=== PATIENT | male | born 1945 | race Caucasian/White ===

== ENCOUNTER 2020-12-18 14:31 | Inpatient (IN) ==
[2020-12-18] MEDS ORDERED: methylPREDNISolone 125 MG/2 ML VIAL IVP ONE (15:26)
[2020-12-18] MEDS ORDERED: Ipratropium/Albuterol Neb 3 ML IH PRN (15:26)
[2020-12-18] MEDS ORDERED: cefTRIAXone 1,000 MG in Water for inj. (sterile) 10 ML IVP ONE (15:27)
[2020-12-18] MEDS ORDERED: Azithromycin 500 MG in 0.9 % Sodium Chloride 250 ML IVPB ONE (15:27)
[2020-12-18] MEDS ORDERED: Furosemide 40 MG/4 ML VIAL IVP ONE (17:25)
[2020-12-18] MEDS ORDERED: Acetaminophen 325 MG TABLET PO PRN (17:32)
[2020-12-18] MEDS ORDERED: Melatonin 3 MG TABLET PO PRN (17:32)
[2020-12-18] MEDS ORDERED: Ondansetron 4 MG/2 ML VIAL IVP PRN (17:32)
[2020-12-18 17:51] LABS: Adenovirus Not Detected (Not Detect); Bordetella Pertussis Not Detected (Not Detect); Chlamydophila pneumoniae Not Detected (Not Detect); Coronavirus 229E Not Detected (Not Detect); Coronavirus HKU1 Not Detected (Not Detect); Coronavirus NL63 Not Detected (Not Detect); Coronavirus OC43 Not Detected (Not Detect); Human Metapneumovirus Not Detected (Not Detect); Human Rhinovirus/Enterovirus Not Detected (Not Detect); Influenza A Subtype 2009 H1 Not Detected (Not Detect); Influenza B Not Detected (Not Detect); Mycoplasma pneumoniae Not Detected (Not Detect); Parainfluenza Virus 1 Not Detected (Not Detect); Parainfluenza Virus 2 Not Detected (Not Detect); Parainfluenza Virus 3 Not Detected (Not Detect); Parainfluenza Virus 4 Not Detected (Not Detect); Respiratory Syncytial Virus Not Detected (Not Detect); SARS-CoV-2 Not Detected (Not Detect)
[2020-12-18] MEDS: Ipratropium/Albuterol Neb 3 ML IH SCH ×2 (20:04→23:45)
[2020-12-18] MEDS: Budesonide/Formoterol 160/4.5 1 PUFF INH IH SCH (20:04)
[2020-12-18] MEDS: *HR* Dabigatran 150 MG CAPSULE PO SCH (20:31)
[2020-12-18] MEDS: MethylPREDNISolone 40 MG/ML VIAL IVP SCH (23:10)
[2020-12-19 03:43] LABS: Hematocrit 42.6 % (37.5-50.1); Hemoglobin 14.5 g/dL (12.9-16.9); Mean Corpuscular Hemoglobin 32.2 pg (28.0-33.3); Mean Corpuscular Volume 94.7 fL (83.0-100.0); Mean Platelet Volume 8.8 fL (9.4-12.4); Platelet Count 213 K/mcL (140-400); Red Cell Distribution Width 14.2 % (11.5-14.5); White Blood Count 5.3 K/mcL (4.3-11.1)
[2020-12-19 03:53] LABS: INR 1.2; Prothrombin Time 14.3 Seconds (9.4-12.1)
[2020-12-19 04:03] LABS: BUN/Creatinine Ratio 26 (6-26); Blood Urea Nitrogen 23 mg/dL (8-23); Calcium 9.6 mg/dL (8.6-10.3); Carbon Dioxide 26 mEq/L (23-29); Chloride 96 mEq/L (98-107); Glucose 201 mg/dL (70-105); Magnesium 1.8 mg/dL (1.6-2.6); Osmolality,Calculated 281 (280-300); Phosphorous 3.2 mg/dL (2.7-4.5); Potassium 4.9 mEq/L (3.5-5.1); Sodium 131 mEq/L (136-145); eGFR For African Americans > 60 (> 60); eGFR For Non-African Americans > 60 (> 60)
[2020-12-19] MEDS: Ipratropium/Albuterol Neb 3 ML IH SCH ×6 (04:10→23:03)
[2020-12-19] MEDS: Budesonide/Formoterol 160/4.5 1 PUFF INH IH SCH ×2 (07:18→19:52)
[2020-12-19] MEDS: DilTIAZem CD (24hr) 240 MG CAP.ER.24H PO SCH (08:42)
[2020-12-19] MEDS: Metoprolol XL (24 HR) Succ 50 MG TAB.ER.24H PO SCH (08:42)
[2020-12-19] MEDS: cefTRIAXone 1,000 MG in Water for inj. (sterile) 10 ML IVP SCH (08:42)
[2020-12-19] MEDS: *HR* Dabigatran 150 MG CAPSULE PO SCH ×2 (08:42→20:03)
[2020-12-19] MEDS: MethylPREDNISolone 40 MG/ML VIAL IVP SCH ×2 (08:42→17:03)
[2020-12-19] MEDS ORDERED: Furosemide 40 MG/4 ML VIAL IVP SCH (09:00)
[2020-12-19] MEDS: Azithromycin 250 MG TABLET PO SCH (17:03)
[2020-12-20] MEDS: MethylPREDNISolone 40 MG/ML VIAL IVP SCH (00:09)
[2020-12-20] MEDS: Ipratropium/Albuterol Neb 3 ML IH SCH ×6 (04:09→22:43)
[2020-12-20] MEDS: Budesonide/Formoterol 160/4.5 1 PUFF INH IH SCH ×2 (07:22→20:05)
[2020-12-20] MEDS: DilTIAZem CD (24hr) 240 MG CAP.ER.24H PO SCH (08:52)
[2020-12-20] MEDS: Metoprolol XL (24 HR) Succ 50 MG TAB.ER.24H PO SCH (08:53)
[2020-12-20] MEDS: Furosemide 40 MG TABLET PO SCH (08:53)
[2020-12-20] MEDS: predniSONE 20 MG TABLET PO SCH (08:53)
[2020-12-20] MEDS: *HR* Dabigatran 150 MG CAPSULE PO SCH ×2 (08:53→20:12)
[2020-12-20] MEDS: cefTRIAXone 1,000 MG in Water for inj. (sterile) 10 ML IVP SCH (08:54)
[2020-12-20] MEDS ORDERED: Fluticasone Propionate Nasal 50 MCG/SPRAY BOTTLE NS PRN (10:36)
[2020-12-20] MEDS: Azithromycin 250 MG TABLET PO SCH (16:26)
[2020-12-21 01:55] LABS: Hematocrit 37.5 % (37.5-50.1); Mean Corpuscular HGB Conc 34.7 g/dL (31.6-35.5); Mean Corpuscular Hemoglobin 33.2 pg (28.0-33.3); Mean Corpuscular Volume 95.9 fL (83.0-100.0); Mean Platelet Volume 9.1 fL (9.4-12.4); Platelet Count 224 K/mcL (140-400); Red Blood Count 3.91 M/mcL (4.19-5.50); Red Cell Distribution Width 14.2 % (11.5-14.5)
[2020-12-21 02:01] LABS: White Blood Count 12.9 K/mcL (4.3-11.1)
[2020-12-21 02:17] LABS: BUN/Creatinine Ratio 40 (6-26); Blood Urea Nitrogen 32 mg/dL (8-23); Calcium 9.1 mg/dL (8.6-10.3); Carbon Dioxide 25 mEq/L (23-29); Chloride 98 mEq/L (98-107); Glucose 252 mg/dL (70-105); Osmolality,Calculated 287 (280-300); Potassium 3.9 mEq/L (3.5-5.1); Sodium 131 mEq/L (136-145); eGFR For African Americans > 60 (> 60); eGFR For Non-African Americans > 60 (> 60)
[2020-12-21] MEDS: Ipratropium/Albuterol Neb 3 ML IH SCH ×6 (03:42→23:21)
[2020-12-21] MEDS: Budesonide/Formoterol 160/4.5 1 PUFF INH IH SCH ×2 (07:40→19:56)
[2020-12-21] MEDS: cefTRIAXone 1,000 MG in Water for inj. (sterile) 10 ML IVP SCH (07:46)
[2020-12-21] MEDS: *HR* Dabigatran 150 MG CAPSULE PO SCH ×2 (07:46→20:24)
[2020-12-21] MEDS: DilTIAZem CD (24hr) 240 MG CAP.ER.24H PO SCH (07:47)
[2020-12-21] MEDS: Furosemide 40 MG TABLET PO SCH (07:47)
[2020-12-21] MEDS: predniSONE 20 MG TABLET PO SCH (07:47)
[2020-12-21] MEDS: Metoprolol XL (24 HR) Succ 50 MG TAB.ER.24H PO SCH (07:48)
[2020-12-21] MEDS: MethylPREDNISolone 40 MG/ML VIAL IVP SCH (16:59)
[2020-12-21] MEDS: Azithromycin 250 MG TABLET PO SCH (16:59)
[2020-12-22 02:03] LABS: Basophils % 0.3 %; Hematocrit 37.3 % (37.5-50.1); Hemoglobin 12.8 g/dL (12.9-16.9); Immature Granulocytes % 1.6 % (0-4); Lymphocytes # 1.5 K/mcL (0.6-4.6); Lymphocytes % 14.7 %; Mean Corpuscular HGB Conc 34.3 g/dL (31.6-35.5); Mean Corpuscular Hemoglobin 32.7 pg (28.0-33.3); Mean Corpuscular Volume 95.2 fL (83.0-100.0); Mean Platelet Volume 8.8 fL (9.4-12.4); Monocytes # 0.4 K/mcL (0.0-1.3); Monocytes % 3.7 %; Neutrophils # 7.9 K/mcL (1.6-8.9); Platelet Count 230 K/mcL (140-400); Red Blood Count 3.92 M/mcL (4.19-5.50); Red Cell Distribution Width 14.1 % (11.5-14.5); Segmented Neutrophils % 79.7 %; White Blood Count 9.9 K/mcL (4.3-11.1)
[2020-12-22] MEDS: Ipratropium/Albuterol Neb 3 ML IH SCH ×6 (04:12→22:09)
[2020-12-22] MEDS: MethylPREDNISolone 40 MG/ML VIAL IVP SCH ×3 (06:23→15:19)
[2020-12-22] MEDS: Budesonide/Formoterol 160/4.5 1 PUFF INH IH SCH ×2 (07:23→22:10)
[2020-12-22] MEDS: *HR* Dabigatran 150 MG CAPSULE PO SCH ×2 (10:06→20:24)
[2020-12-22] MEDS: Metoprolol XL (24 HR) Succ 50 MG TAB.ER.24H PO SCH (10:06)
[2020-12-22] MEDS: Furosemide 40 MG TABLET PO SCH (10:07)
[2020-12-22] MEDS: DilTIAZem CD (24hr) 240 MG CAP.ER.24H PO SCH (10:07)
[2020-12-22] MEDS: cefTRIAXone 1,000 MG in Water for inj. (sterile) 10 ML IVP SCH (10:07)
[2020-12-22] MEDS: Acetylcysteine 10% 2 ML INHSOL IH SCH ×3 (11:16→22:09)
[2020-12-22] MEDS: Azithromycin 250 MG TABLET PO SCH (15:19)
[2020-12-23] MEDS: MethylPREDNISolone 40 MG/ML VIAL IVP SCH ×3 (00:17→18:10)
[2020-12-23] MEDS: Ipratropium/Albuterol Neb 3 ML IH SCH ×4 (03:54→22:27)
[2020-12-23] MEDS: Acetylcysteine 10% 2 ML INHSOL IH SCH ×4 (03:54→22:27)
[2020-12-23] MEDS: *HR* Dabigatran 150 MG CAPSULE PO SCH ×2 (07:58→21:00)
[2020-12-23] MEDS: DilTIAZem CD (24hr) 240 MG CAP.ER.24H PO SCH (07:58)
[2020-12-23] MEDS: Metoprolol XL (24 HR) Succ 50 MG TAB.ER.24H PO SCH (07:58)
[2020-12-23] MEDS: Furosemide 40 MG TABLET PO SCH (07:59)
[2020-12-23] MEDS: Budesonide/Formoterol 160/4.5 1 PUFF INH IH SCH ×2 (09:48→22:26)
[2020-12-24] MEDS: MethylPREDNISolone 40 MG/ML VIAL IVP SCH ×2 (00:50→08:01)
[2020-12-24] MEDS: Acetylcysteine 10% 2 ML INHSOL IH SCH (03:30)
[2020-12-24] MEDS: Ipratropium/Albuterol Neb 3 ML IH SCH (03:30)
[2020-12-24 07:14] LABS: Basophils # 0.1 K/mcL (0.0-0.2); Basophils % 0.8 %; Eosinophils # 0.1 K/mcL (0.0-0.6); Eosinophils % 0.4 %; Hematocrit 40.5 % (37.5-50.1); Hemoglobin 14.1 g/dL (12.9-16.9); Immature Granulocytes % 2.9 % (0-4); Lymphocytes # 1.5 K/mcL (0.6-4.6); Lymphocytes % 13.2 %; Mean Corpuscular HGB Conc 34.8 g/dL (31.6-35.5); Mean Corpuscular Hemoglobin 32.3 pg (28.0-33.3); Mean Corpuscular Volume 92.7 fL (83.0-100.0); Mean Platelet Volume 8.6 fL (9.4-12.4); Monocytes # 0.5 K/mcL (0.0-1.3); Monocytes % 4.9 %; Neutrophils # 8.7 K/mcL (1.6-8.9); Platelet Count 305 K/mcL (140-400); Red Blood Count 4.37 M/mcL (4.19-5.50); Red Cell Distribution Width 13.8 % (11.5-14.5); Segmented Neutrophils % 77.8 %; White Blood Count 11.1 K/mcL (4.3-11.1)
[2020-12-24 07:34] LABS: BUN/Creatinine Ratio 43 (6-26); Blood Urea Nitrogen 35 mg/dL (8-23); Calcium 9.6 mg/dL (8.6-10.3); Carbon Dioxide 31 mEq/L (23-29); Chloride 94 mEq/L (98-107); Glucose 332 mg/dL (70-105); Osmolality,Calculated 299 (280-300); Potassium 4.4 mEq/L (3.5-5.1); Sodium 134 mEq/L (136-145); eGFR For African Americans > 60 (> 60); eGFR For Non-African Americans > 60 (> 60)
[2020-12-24] MEDS: Metoprolol XL (24 HR) Succ 50 MG TAB.ER.24H PO SCH (08:02)
[2020-12-24] MEDS: Furosemide 40 MG TABLET PO SCH (08:02)
[2020-12-24] MEDS: *HR* Dabigatran 150 MG CAPSULE PO SCH (08:02)
[2020-12-24] MEDS: DilTIAZem CD (24hr) 240 MG CAP.ER.24H PO SCH (08:02)
[2020-12-25 06:51] VITALS: BP 133/76
== END 2020-12-24 09:25 | disposition home or self-care (01) | DRG 190 ==
LOC: EMEROOARM 14:31 → 3ANU 14:31 → SUATTDRO 17:34 → 3ANU 18:37
PROVIDERS: ADMIT Internal Medicine; ATTEND Family Medicine

== ENCOUNTER 2021-04-19 21:06 | Inpatient (IN) ==
[2021-04-20] MEDS ORDERED: Acetaminophen 325 MG TABLET PO PRN (00:33)
[2021-04-20] MEDS ORDERED: Naloxone 0.4 MG/ML INJ IVP PRN (00:33)
[2021-04-20] MEDS ORDERED: Ondansetron 4 MG/2 ML VIAL IVP PRN (00:33)
[2021-04-20] MEDS ORDERED: Ipratropium/Albuterol Neb 3 ML IH PRN (03:12)
[2021-04-20 06:45] LABS: Basophils # 0.1 K/mcL (0.0-0.2); Basophils % 0.7 %; Eosinophils % 0.1 %; Hematocrit 38.2 % (37.5-50.1); Hemoglobin 12.9 g/dL (12.9-16.9); Immature Granulocytes % 2.2 % (0-4); Lymphocytes # 3.2 K/mcL (0.6-4.6); Mean Corpuscular HGB Conc 33.8 g/dL (31.6-35.5); Mean Corpuscular Hemoglobin 31.5 pg (28.0-33.3); Mean Corpuscular Volume 93.4 fL (83.0-100.0); Mean Platelet Volume 9.1 fL (9.4-12.4); Monocytes # 1.1 K/mcL (0.0-1.3); Neutrophils # 10.6 K/mcL (1.6-8.9); Platelet Count 219 K/mcL (140-400); Red Blood Count 4.09 M/mcL (4.19-5.50); Red Cell Distribution Width 13.1 % (11.5-14.5); White Blood Count 15.3 K/mcL (4.3-11.1)
[2021-04-20 06:49] LABS: BUN/Creatinine Ratio 41 (6-26); Blood Urea Nitrogen 32 mg/dL (8-23); Calcium 8.9 mg/dL (8.6-10.3); Carbon Dioxide 32 mEq/L (23-29); Chloride 95 mEq/L (98-107); Glucose 152 mg/dL (70-105); Magnesium 1.9 mg/dL (1.6-2.6); Osmolality,Calculated 286 (280-300); Potassium 4.5 mEq/L (3.5-5.1); Sodium 133 mEq/L (136-145); eGFR For African Americans > 60 (> 60); eGFR For Non-African Americans > 60 (> 60)
[2021-04-20] MEDS ORDERED: MethylPREDNISolone 40 MG/ML VIAL ONE (11:28)
[2021-04-20] MEDS: Ipratropium/Albuterol Neb 3 ML IH SCH ×4 (11:33→21:47)
[2021-04-20] MEDS: MethylPREDNISolone 40 MG/ML VIAL IVP SCH ×2 (11:34→15:47)
[2021-04-20] MEDS: Azithromycin 500 MG in 0.9 % Sodium Chloride 250 ML IVPB SCH (11:37)
[2021-04-20] MEDS ORDERED: Furosemide 20 MG/2 ML VIAL IVP ONE (14:02)
[2021-04-20 14:27] LABS: Adenovirus Not Detected (Not Detect); Bordetella Pertussis Not Detected (Not Detect); Chlamydophila pneumoniae Not Detected (Not Detect); Coronavirus 229E Not Detected (Not Detect); Coronavirus HKU1 Not Detected (Not Detect); Coronavirus NL63 Not Detected (Not Detect); Coronavirus OC43 Not Detected (Not Detect); Human Metapneumovirus Not Detected (Not Detect); Human Rhinovirus/Enterovirus Not Detected (Not Detect); Influenza A Subtype 2009 H1 Not Detected (Not Detect); Influenza B Not Detected (Not Detect); Mycoplasma pneumoniae Not Detected (Not Detect); Parainfluenza Virus 1 Not Detected (Not Detect); Parainfluenza Virus 2 Not Detected (Not Detect); Parainfluenza Virus 3 Not Detected (Not Detect); Parainfluenza Virus 4 Not Detected (Not Detect); Respiratory Syncytial Virus Not Detected (Not Detect); SARS-CoV-2 Not Detected (Not Detect)
[2021-04-20] MEDS: Metoprolol XL (24 HR) Succ 50 MG TAB.ER.24H PO SCH (15:48)
[2021-04-20] MEDS: Budesonide/Formoterol 160/4.5 1 PUFF INH IH SCH (21:41)
[2021-04-20] MEDS: *HR* Dabigatran 150 MG CAPSULE PO SCH (21:41)
[2021-04-21] MEDS: MethylPREDNISolone 40 MG/ML VIAL IVP SCH ×3 (01:00→16:08)
[2021-04-21] MEDS: Ipratropium/Albuterol Neb 3 ML IH SCH ×6 (01:10→20:34)
[2021-04-21 07:28] LABS: Hematocrit 38.1 % (37.5-50.1); Hemoglobin 13.1 g/dL (12.9-16.9); Mean Corpuscular HGB Conc 34.4 g/dL (31.6-35.5); Mean Corpuscular Hemoglobin 32.2 pg (28.0-33.3); Mean Corpuscular Volume 93.6 fL (83.0-100.0); Mean Platelet Volume 9.2 fL (9.4-12.4); Platelet Count 208 K/mcL (140-400); Red Blood Count 4.07 M/mcL (4.19-5.50); Red Cell Distribution Width 13.1 % (11.5-14.5); White Blood Count 8.6 K/mcL (4.3-11.1)
[2021-04-21 07:43] LABS: Alanine Aminotransferase 44 Units/L (7-52); Albumin 3.6 g/dL (3.5-5.7); Albumin/Globulin Ratio 1.7 (1.1-2.2); Alkaline Phosphatase 45 Units/L (34-104); Aspartate Amino Transferase 17 Units/L (13-39); Bilirubin,Total 0.7 mg/dL (0.3-1.0); Blood Urea Nitrogen 30 mg/dL (8-23); Calcium 8.6 mg/dL (8.6-10.3); Carbon Dioxide 34 mEq/L (23-29); Chloride 96 mEq/L (98-107); Globulin 2.1 g/dL (2.4-3.5); Glucose 236 mg/dL (70-105); Osmolality,Calculated 294 (280-300); Potassium 4.2 mEq/L (3.5-5.1); Sodium 135 mEq/L (136-145); Total Protein 5.7 g/dL (6.4-8.9)
[2021-04-21 08:51] LABS: BUN/Creatinine Ratio 45 (6-26); eGFR For African Americans > 60 (> 60); eGFR For Non-African Americans > 60 (> 60)
[2021-04-21] MEDS: Furosemide 40 MG TABLET PO SCH (09:34)
[2021-04-21] MEDS: Metoprolol XL (24 HR) Succ 50 MG TAB.ER.24H PO SCH (09:34)
[2021-04-21] MEDS: *HR* Dabigatran 150 MG CAPSULE PO SCH ×2 (10:45→21:49)
[2021-04-21] MEDS: Azithromycin 500 MG in 0.9 % Sodium Chloride 250 ML IVPB SCH (10:56)
[2021-04-21] MEDS: Budesonide/Formoterol 160/4.5 1 PUFF INH IH SCH ×2 (11:31→20:34)
[2021-04-22] MEDS: Ipratropium/Albuterol Neb 3 ML IH SCH ×6 (00:04→19:43)
[2021-04-22] MEDS: MethylPREDNISolone 40 MG/ML VIAL IVP SCH ×3 (00:12→16:44)
[2021-04-22] MEDS: Budesonide/Formoterol 160/4.5 1 PUFF INH IH SCH ×2 (07:25→19:43)
[2021-04-22] MEDS: Metoprolol XL (24 HR) Succ 50 MG TAB.ER.24H PO SCH (07:58)
[2021-04-22] MEDS: Furosemide 40 MG TABLET PO SCH (07:58)
[2021-04-22] MEDS: *HR* Dabigatran 150 MG CAPSULE PO SCH ×2 (07:58→20:33)
[2021-04-22 08:33] LABS: Hematocrit 40.4 % (37.5-50.1); Hemoglobin 13.6 g/dL (12.9-16.9); Mean Corpuscular HGB Conc 33.7 g/dL (31.6-35.5); Mean Corpuscular Hemoglobin 31.8 pg (28.0-33.3); Mean Corpuscular Volume 94.4 fL (83.0-100.0); Mean Platelet Volume 9.2 fL (9.4-12.4); Platelet Count 222 K/mcL (140-400); Red Blood Count 4.28 M/mcL (4.19-5.50); Red Cell Distribution Width 13.2 % (11.5-14.5); White Blood Count 12.6 K/mcL (4.3-11.1)
[2021-04-22 08:55] LABS: Alanine Aminotransferase 40 Units/L (7-52); Albumin 3.8 g/dL (3.5-5.7); Albumin/Globulin Ratio 1.8 (1.1-2.2); Alkaline Phosphatase 45 Units/L (34-104); Aspartate Amino Transferase 12 Units/L (13-39); BUN/Creatinine Ratio 43 (6-26); Bilirubin,Total 0.6 mg/dL (0.3-1.0); Blood Urea Nitrogen 32 mg/dL (8-23); Calcium 8.9 mg/dL (8.6-10.3); Carbon Dioxide 34 mEq/L (23-29); Chloride 96 mEq/L (98-107); Globulin 2.1 g/dL (2.4-3.5); Glucose 267 mg/dL (70-105); Osmolality,Calculated 298 (280-300); Potassium 4.3 mEq/L (3.5-5.1); Sodium 136 mEq/L (136-145); Total Protein 5.9 g/dL (6.4-8.9); eGFR For African Americans > 60 (> 60); eGFR For Non-African Americans > 60 (> 60)
[2021-04-22] MEDS: Azithromycin 500 MG in 0.9 % Sodium Chloride 250 ML IVPB SCH (10:55)
[2021-04-22] MEDS ORDERED: *HR* Dextrose 50 % in Water (Vial) 50 ML VIAL IVP PRN (11:52)
[2021-04-22] MEDS ORDERED: D5% in Water 1,000 ML IVC PRN (11:52)
[2021-04-22] MEDS ORDERED: Dextrose Gel 15 GM/37.5 ML TUBE PO PRN ×2 (11:52)
[2021-04-22] MEDS: Insulin LISPRO 300 UNITS/3 ML VIAL SUBQ SCH ×3 (12:46→20:35)
[2021-04-22 13:24] LABS: Estimated Average Glucose 160 mg/dl; Hemoglobin A1C 7.2 %
[2021-04-22] MEDS ORDERED: Furosemide 20 MG/2 ML VIAL IVP ONE (16:17)
[2021-04-22] MEDS: Aspirin Enteric Coated 81 MG Tablet PO SCH (16:45)
[2021-04-23] MEDS: MethylPREDNISolone 40 MG/ML VIAL IVP SCH ×2 (00:12→08:12)
[2021-04-23] MEDS: Ipratropium/Albuterol Neb 3 ML IH SCH ×7 (03:39→23:39)
[2021-04-23] MEDS: Budesonide/Formoterol 160/4.5 1 PUFF INH IH SCH ×2 (07:32→20:04)
[2021-04-23] MEDS: Aspirin Enteric Coated 81 MG Tablet PO SCH (08:12)
[2021-04-23] MEDS: Furosemide 40 MG TABLET PO SCH (08:12)
[2021-04-23] MEDS: Insulin LISPRO 300 UNITS/3 ML VIAL SUBQ SCH ×4 (08:13→20:17)
[2021-04-23] MEDS: Metoprolol XL (24 HR) Succ 50 MG TAB.ER.24H PO SCH (08:13)
[2021-04-23] MEDS: *HR* Dabigatran 150 MG CAPSULE PO SCH ×2 (08:13→20:18)
[2021-04-23 08:49] LABS: Hematocrit 42.5 % (37.5-50.1); Hemoglobin 13.9 g/dL (12.9-16.9); Mean Corpuscular HGB Conc 32.7 g/dL (31.6-35.5); Mean Corpuscular Hemoglobin 31.1 pg (28.0-33.3); Mean Corpuscular Volume 95.1 fL (83.0-100.0); Mean Platelet Volume 8.9 fL (9.4-12.4); Platelet Count 202 K/mcL (140-400); Red Blood Count 4.47 M/mcL (4.19-5.50); Red Cell Distribution Width 13.2 % (11.5-14.5); White Blood Count 11.9 K/mcL (4.3-11.1)
[2021-04-23 09:10] LABS: Alanine Aminotransferase 46 Units/L (7-52); Albumin 3.9 g/dL (3.5-5.7); Albumin/Globulin Ratio 1.6 (1.1-2.2); Alkaline Phosphatase 45 Units/L (34-104); Aspartate Amino Transferase 17 Units/L (13-39); BUN/Creatinine Ratio 48 (6-26); Bilirubin,Total 0.7 mg/dL (0.3-1.0); Blood Urea Nitrogen 33 mg/dL (8-23); Calcium 8.9 mg/dL (8.6-10.3); Carbon Dioxide 35 mEq/L (23-29); Chloride 95 mEq/L (98-107); Globulin 2.5 g/dL (2.4-3.5); Glucose 264 mg/dL (70-105); Osmolality,Calculated 302 (280-300); Potassium 3.8 mEq/L (3.5-5.1); Sodium 138 mEq/L (136-145); Total Protein 6.4 g/dL (6.4-8.9); eGFR For African Americans > 60 (> 60); eGFR For Non-African Americans > 60 (> 60)
[2021-04-23] MEDS: Azithromycin 500 MG in 0.9 % Sodium Chloride 250 ML IVPB SCH (11:09)
[2021-04-23] MEDS: Insulin DETEMIR 100 UNIT/ML X5UNITS SUBQ SCH (20:18)
[2021-04-24 01:31] LABS: Hemoglobin 12.7 g/dL (12.9-16.9); Mean Corpuscular HGB Conc 33.4 g/dL (31.6-35.5); Mean Corpuscular Hemoglobin 31.4 pg (28.0-33.3); Mean Corpuscular Volume 94.1 fL (83.0-100.0); Mean Platelet Volume 9.1 fL (9.4-12.4); Platelet Count 187 K/mcL (140-400); Red Blood Count 4.04 M/mcL (4.19-5.50); Red Cell Distribution Width 13.1 % (11.5-14.5)
[2021-04-24 01:51] LABS: Alanine Aminotransferase 39 Units/L (7-52); Albumin 3.5 g/dL (3.5-5.7); Albumin/Globulin Ratio 1.5 (1.1-2.2); Alkaline Phosphatase 47 Units/L (34-104); Aspartate Amino Transferase 14 Units/L (13-39); BUN/Creatinine Ratio 46 (6-26); Bilirubin,Total 0.5 mg/dL (0.3-1.0); Blood Urea Nitrogen 30 mg/dL (8-23); Calcium 8.5 mg/dL (8.6-10.3); Carbon Dioxide 34 mEq/L (23-29); Chloride 96 mEq/L (98-107); Globulin 2.3 g/dL (2.4-3.5); Glucose 276 mg/dL (70-105); Osmolality,Calculated 300 (280-300); Potassium 4.1 mEq/L (3.5-5.1); Sodium 137 mEq/L (136-145); Total Protein 5.8 g/dL (6.4-8.9); eGFR For African Americans > 60 (> 60); eGFR For Non-African Americans > 60 (> 60)
[2021-04-24] MEDS: Ipratropium/Albuterol Neb 3 ML IH SCH ×5 (04:02→20:39)
[2021-04-24] MEDS ORDERED: Regadenoson 0.4 MG/5 ML SYRINGE IVP ONE (06:32)
[2021-04-24] MEDS: Insulin LISPRO 300 UNITS/3 ML VIAL SUBQ SCH ×4 (07:00→21:05)
[2021-04-24] MEDS: Azithromycin 500 MG in 0.9 % Sodium Chloride 250 ML IVPB SCH (11:00)
[2021-04-24] MEDS: Furosemide 40 MG TABLET PO SCH (11:00)
[2021-04-24] MEDS: predniSONE 20 MG TABLET PO SCH (11:00)
[2021-04-24] MEDS: Metoprolol XL (24 HR) Succ 50 MG TAB.ER.24H PO SCH (11:00)
[2021-04-24] MEDS: *HR* Dabigatran 150 MG CAPSULE PO SCH ×2 (11:00→21:08)
[2021-04-24] MEDS: Aspirin Enteric Coated 81 MG Tablet PO SCH (11:00)
[2021-04-24] MEDS: Budesonide/Formoterol 160/4.5 1 PUFF INH IH SCH ×2 (11:29→20:39)
[2021-04-24] MEDS: DilTIAZem CD (24hr) 120 MG CAP.ER.24H PO SCH (14:15)
[2021-04-24] MEDS: Insulin DETEMIR 100 UNIT/ML X5UNITS SUBQ SCH (21:08)
[2021-04-25] MEDS: Ipratropium/Albuterol Neb 3 ML IH SCH ×6 (00:10→20:40)
[2021-04-25 04:55] LABS: Hematocrit 38.9 % (37.5-50.1); Hemoglobin 13.2 g/dL (12.9-16.9); Mean Corpuscular HGB Conc 33.9 g/dL (31.6-35.5); Mean Corpuscular Hemoglobin 31.5 pg (28.0-33.3); Mean Corpuscular Volume 92.8 fL (83.0-100.0); Mean Platelet Volume 8.9 fL (9.4-12.4); Platelet Count 168 K/mcL (140-400); Red Blood Count 4.19 M/mcL (4.19-5.50); Red Cell Distribution Width 13.1 % (11.5-14.5); White Blood Count 12.9 K/mcL (4.3-11.1)
[2021-04-25 05:18] LABS: Alanine Aminotransferase 37 Units/L (7-52); Albumin 3.5 g/dL (3.5-5.7); Albumin/Globulin Ratio 1.8 (1.1-2.2); Alkaline Phosphatase 41 Units/L (34-104); Aspartate Amino Transferase 14 Units/L (13-39); BUN/Creatinine Ratio 53 (6-26); Bilirubin,Total 0.8 mg/dL (0.3-1.0); Blood Urea Nitrogen 29 mg/dL (8-23); Calcium 8.4 mg/dL (8.6-10.3); Carbon Dioxide 37 mEq/L (23-29); Chloride 94 mEq/L (98-107); Globulin 1.9 g/dL (2.4-3.5); Glucose 129 mg/dL (70-105); Osmolality,Calculated 288 (280-300); Sodium 135 mEq/L (136-145); Total Protein 5.4 g/dL (6.4-8.9); eGFR For African Americans > 60 (> 60); eGFR For Non-African Americans > 60 (> 60)
[2021-04-25] MEDS: Budesonide/Formoterol 160/4.5 1 PUFF INH IH SCH ×2 (08:34→20:42)
[2021-04-25] MEDS: Insulin LISPRO 300 UNITS/3 ML VIAL SUBQ SCH ×4 (08:34→21:44)
[2021-04-25] MEDS: predniSONE 20 MG TABLET PO SCH (09:15)
[2021-04-25] MEDS: Aspirin Enteric Coated 81 MG Tablet PO SCH (09:15)
[2021-04-25] MEDS: Metoprolol XL (24 HR) Succ 50 MG TAB.ER.24H PO SCH (09:15)
[2021-04-25] MEDS: *HR* Dabigatran 150 MG CAPSULE PO SCH ×2 (09:15→21:44)
[2021-04-25] MEDS: DilTIAZem CD (24hr) 120 MG CAP.ER.24H PO SCH (09:15)
[2021-04-25] MEDS: Furosemide 40 MG TABLET PO SCH (09:15)
[2021-04-25] MEDS: Insulin DETEMIR 100 UNIT/ML X5UNITS SUBQ SCH (22:16)
[2021-04-26] MEDS: Ipratropium/Albuterol Neb 3 ML IH SCH ×4 (02:19→11:23)
[2021-04-26 07:38] VITALS: BP 121/100; PULSE 84; TEMP 97.9
[2021-04-26] MEDS: Insulin LISPRO 300 UNITS/3 ML VIAL SUBQ SCH (07:58)
[2021-04-26] MEDS: Budesonide/Formoterol 160/4.5 1 PUFF INH IH SCH (08:23)
[2021-04-26] MEDS: Aspirin Enteric Coated 81 MG Tablet PO SCH (09:54)
[2021-04-26] MEDS: Furosemide 40 MG TABLET PO SCH (09:55)
[2021-04-26] MEDS: Metoprolol XL (24 HR) Succ 50 MG TAB.ER.24H PO SCH (09:55)
[2021-04-26] MEDS: predniSONE 20 MG TABLET PO SCH (09:55)
[2021-04-26] MEDS: *HR* Dabigatran 150 MG CAPSULE PO SCH (09:55)
[2021-04-26] MEDS: DilTIAZem CD (24hr) 120 MG CAP.ER.24H PO SCH (09:55)
[2021-04-26 11:25] VITALS: O2SAT 97
== END 2021-04-26 12:18 | disposition home or self-care (01) | DRG 308 ==
LOC: SUATTDRO 04-20 00:07 → CDU 04-20 00:07
PROVIDERS: ADMIT Pharmacist; ATTEND Hospitalist

== ENCOUNTER 2021-09-12 16:01 | Inpatient (IN) ==
[2021-09-12] MEDS ORDERED: Ondansetron 4 MG/2 ML VIAL IVP PRN (19:40)
[2021-09-12] MEDS ORDERED: Naloxone 0.4 MG/ML INJ IVP PRN (19:40)
[2021-09-12 21:18] LABS: Bilirubin,Urine Negative (Negative); Blood,Urine Negative (Negative); Clarity,Urine Clear (Clear); Color,Urine Yellow (Yellow); Glucose,Urine (UA) >=1000 mg/dL (Normal); Ketones,Urine Negative (Negative); Leukocyte Esterase,Urine Negative (Negative); Mucus,Urine Few per lpf (None-Few); Nitrite,Urine Negative (Negative); Protein,Urine 50 mg/dL (Neg-Trace); RBC,Urine 0-3 per hpf (0-3); Specific Gravity,Urine 1.026 (1.010-1.025); Urobilinogen,Urine Normal (Normal)
[2021-09-12] MEDS: Furosemide 40 MG/4 ML VIAL IVP SCH (21:49)
[2021-09-12 22:04] LABS: Adenovirus Not Detected (Not Detect); Bordetella Pertussis Not Detected (Not Detect); Chlamydophila pneumoniae Not Detected (Not Detect); Coronavirus 229E Not Detected (Not Detect); Coronavirus HKU1 Not Detected (Not Detect); Coronavirus NL63 Not Detected (Not Detect); Coronavirus OC43 Not Detected (Not Detect); Human Metapneumovirus Not Detected (Not Detect); Human Rhinovirus/Enterovirus Not Detected (Not Detect); Influenza A Subtype 2009 H1 Not Detected (Not Detect); Influenza B Not Detected (Not Detect); Mycoplasma pneumoniae Not Detected (Not Detect); Parainfluenza Virus 1 Not Detected (Not Detect); Parainfluenza Virus 2 Not Detected (Not Detect); Parainfluenza Virus 3 Not Detected (Not Detect); Parainfluenza Virus 4 Not Detected (Not Detect); Respiratory Syncytial Virus Not Detected (Not Detect); SARS-CoV-2 Not Detected (Not Detect)
[2021-09-12] MEDS: Ipratropium/Albuterol Neb 3 ML IH PRN (22:41)
[2021-09-13] MEDS: methylPREDNISolone 125 MG/2 ML VIAL IVP SCH ×2 (05:05→17:27)
[2021-09-13 06:32] LABS: Basophils % 0.2 %; Hematocrit 36.5 % (37.5-50.1); Hemoglobin 12.4 g/dL (12.9-16.9); Immature Granulocytes % 0.8 % (0-4); Lymphocytes # 1.7 K/mcL (0.6-4.6); Mean Corpuscular Hemoglobin 31.9 pg (28.0-33.3); Mean Corpuscular Volume 93.8 fL (83.0-100.0); Mean Platelet Volume 8.9 fL (9.4-12.4); Monocytes # 0.4 K/mcL (0.0-1.3); Monocytes % 6.3 %; Neutrophils # 3.8 K/mcL (1.6-8.9); Platelet Count 240 K/mcL (140-400); Red Blood Count 3.89 M/mcL (4.19-5.50); Segmented Neutrophils % 63.7 %
[2021-09-13 06:44] LABS: INR 1.2; Prothrombin Time 13.3 Seconds (9.4-12.1)
[2021-09-13 06:54] LABS: Alanine Aminotransferase 8 Units/L (7-52); Albumin 3.7 g/dL (3.5-5.7); Albumin/Globulin Ratio 1.3 (1.1-2.2); Alkaline Phosphatase 56 Units/L (34-104); Aspartate Amino Transferase 11 Units/L (13-39); BUN/Creatinine Ratio 24 (6-26); Bilirubin,Direct 0.2 mg/dL (0.0-0.2); Bilirubin,Indirect 0.3 mg/dL (0.0-1.0); Bilirubin,Total 0.5 mg/dL (0.3-1.0); Blood Urea Nitrogen 17 mg/dL (8-23); Carbon Dioxide 29 mEq/L (23-29); Chloride 98 mEq/L (98-107); Globulin 2.9 g/dL (2.4-3.5); Glucose 218 mg/dL (70-105); Magnesium 1.5 mg/dL (1.6-2.6); Osmolality,Calculated 288 (280-300); Phosphorous 3.8 mg/dL (2.7-4.5); Potassium 3.9 mEq/L (3.5-5.1); Sodium 135 mEq/L (136-145); Total Protein 6.6 g/dL (6.4-8.9); eGFR For African Americans > 60 (> 60); eGFR For Non-African Americans > 60 (> 60)
[2021-09-13 06:58] LABS: Thyroid Stimulating Hormone 1.015 mcIU/mL (0.340-5.600)
[2021-09-13] MEDS: Budesonide/Formoterol 160/4.5 1 PUFF INH IH SCH ×2 (08:39→20:35)
[2021-09-13] MEDS: Ipratropium/Albuterol Neb 3 ML IH PRN ×2 (10:06→16:41)
[2021-09-13] MEDS: Metoprolol XL (24 HR) Succ 50 MG TAB.ER.24H PO SCH (10:48)
[2021-09-13] MEDS: DilTIAZem CD (24hr) 240 MG CAP.ER.24H PO SCH (10:48)
[2021-09-13] MEDS: cefTRIAXone 1,000 MG in 0.9 % Sodium Chloride Mini Bag 100 ML IVPB SCH (10:48)
[2021-09-13] MEDS: Furosemide 40 MG/4 ML VIAL IVP SCH ×2 (10:49→21:04)
[2021-09-13] MEDS: *HR* Dabigatran 150 MG CAPSULE PO SCH ×2 (10:56→21:04)
[2021-09-13] MEDS: Azithromycin 500 MG in 0.9 % Sodium Chloride 250 ML IVPB SCH (10:58)
[2021-09-13 11:06] LABS: Estimated Average Glucose 157 mg/dl; Hemoglobin A1C 7.1 %
[2021-09-13] MEDS: Fluticasone Propionate Nasal 50 MCG/SPRAY BOTTLE NS PRN (21:43)
[2021-09-14] MEDS: Ipratropium/Albuterol Neb 3 ML IH PRN ×5 (00:10→15:44)
[2021-09-14] MEDS: methylPREDNISolone 125 MG/2 ML VIAL IVP SCH ×2 (05:04→17:14)
[2021-09-14] MEDS: Budesonide/Formoterol 160/4.5 1 PUFF INH IH SCH ×2 (07:59→21:06)
[2021-09-14] MEDS: Metoprolol XL (24 HR) Succ 50 MG TAB.ER.24H PO SCH (08:17)
[2021-09-14] MEDS: DilTIAZem CD (24hr) 240 MG CAP.ER.24H PO SCH (08:17)
[2021-09-14] MEDS: cefTRIAXone 1,000 MG in 0.9 % Sodium Chloride Mini Bag 100 ML IVPB SCH (08:17)
[2021-09-14] MEDS: *HR* Dabigatran 150 MG CAPSULE PO SCH ×2 (08:17→22:50)
[2021-09-14] MEDS: Furosemide 40 MG/4 ML VIAL IVP SCH ×2 (08:18→22:50)
[2021-09-14] MEDS: Azithromycin 500 MG in 0.9 % Sodium Chloride 250 ML IVPB SCH (08:57)
[2021-09-15] MEDS: methylPREDNISolone 125 MG/2 ML VIAL IVP SCH (05:58)
[2021-09-15] MEDS: Metoprolol XL (24 HR) Succ 50 MG TAB.ER.24H PO SCH (08:12)
[2021-09-15] MEDS: DilTIAZem CD (24hr) 240 MG CAP.ER.24H PO SCH (08:12)
[2021-09-15] MEDS: Furosemide 40 MG/4 ML VIAL IVP SCH ×2 (08:13→20:13)
[2021-09-15] MEDS: cefTRIAXone 1,000 MG in 0.9 % Sodium Chloride Mini Bag 100 ML IVPB SCH (08:14)
[2021-09-15 08:16] LABS: BUN/Creatinine Ratio 37 (6-26); Blood Urea Nitrogen 29 mg/dL (8-23); Calcium 9.1 mg/dL (8.6-10.3); Carbon Dioxide 30 mEq/L (23-29); Chloride 95 mEq/L (98-107); Glucose 309 mg/dL (70-105); Osmolality,Calculated 296 (280-300); Sodium 134 mEq/L (136-145); eGFR For African Americans > 60 (> 60); eGFR For Non-African Americans > 60 (> 60)
[2021-09-15] MEDS: *HR* Dabigatran 150 MG CAPSULE PO SCH ×2 (08:19→20:13)
[2021-09-15] MEDS: Budesonide/Formoterol 160/4.5 1 PUFF INH IH SCH ×2 (08:54→21:23)
[2021-09-15] MEDS: Ipratropium/Albuterol Neb 3 ML IH PRN ×4 (08:55→21:23)
[2021-09-15] MEDS: Azithromycin 500 MG in 0.9 % Sodium Chloride 250 ML IVPB SCH (09:10)
[2021-09-15] MEDS ORDERED: methylPREDNISolone 125 MG/2 ML VIAL IVP SCH (09:15)
[2021-09-15] MEDS: MethylPREDNISolone 40 MG/ML VIAL IVP SCH (20:14)
[2021-09-16] MEDS: MethylPREDNISolone 40 MG/ML VIAL IVP SCH ×3 (05:12→20:22)
[2021-09-16] MEDS: Ipratropium/Albuterol Neb 3 ML IH PRN ×2 (08:05→15:10)
[2021-09-16] MEDS: Budesonide/Formoterol 160/4.5 1 PUFF INH IH SCH ×2 (08:06→20:53)
[2021-09-16] MEDS: DilTIAZem CD (24hr) 240 MG CAP.ER.24H PO SCH (08:56)
[2021-09-16] MEDS: Metoprolol XL (24 HR) Succ 50 MG TAB.ER.24H PO SCH (08:56)
[2021-09-16] MEDS: cefTRIAXone 1,000 MG in 0.9 % Sodium Chloride Mini Bag 100 ML IVPB SCH (08:58)
[2021-09-16] MEDS: Furosemide 40 MG/4 ML VIAL IVP SCH ×2 (09:03→20:22)
[2021-09-16] MEDS: *HR* Dabigatran 150 MG CAPSULE PO SCH ×2 (09:10→20:23)
[2021-09-16] MEDS: Azithromycin 500 MG in 0.9 % Sodium Chloride 250 ML IVPB SCH (10:21)
[2021-09-17] MEDS: MethylPREDNISolone 40 MG/ML VIAL IVP SCH ×3 (05:34→16:31)
[2021-09-17 06:49] LABS: Hematocrit 36.2 % (37.5-50.1); Hemoglobin 12.2 g/dL (12.9-16.9); Mean Corpuscular HGB Conc 33.7 g/dL (31.6-35.5); Mean Corpuscular Hemoglobin 31.4 pg (28.0-33.3); Mean Corpuscular Volume 93.3 fL (83.0-100.0); Mean Platelet Volume 9.1 fL (9.4-12.4); Platelet Count 253 K/mcL (140-400); Red Blood Count 3.88 M/mcL (4.19-5.50); Red Cell Distribution Width 13.5 % (11.5-14.5); White Blood Count 5.9 K/mcL (4.3-11.1)
[2021-09-17 07:19] LABS: BUN/Creatinine Ratio 43 (6-26); Blood Urea Nitrogen 36 mg/dL (8-23); Carbon Dioxide 35 mEq/L (23-29); Chloride 93 mEq/L (98-107); Glucose 411 mg/dL (70-105); Osmolality,Calculated 304 (280-300); Potassium 4.2 mEq/L (3.5-5.1); Sodium 134 mEq/L (136-145); eGFR For African Americans > 60 (> 60); eGFR For Non-African Americans > 60 (> 60)
[2021-09-17] MEDS: Ipratropium/Albuterol Neb 3 ML IH PRN ×3 (08:29→20:54)
[2021-09-17] MEDS: Budesonide/Formoterol 160/4.5 1 PUFF INH IH SCH ×2 (08:29→20:54)
[2021-09-17] MEDS: Furosemide 40 MG/4 ML VIAL IVP SCH ×2 (09:27→23:05)
[2021-09-17] MEDS: Metoprolol XL (24 HR) Succ 50 MG TAB.ER.24H PO SCH (09:51)
[2021-09-17] MEDS: DilTIAZem CD (24hr) 240 MG CAP.ER.24H PO SCH (09:51)
[2021-09-17] MEDS: cefTRIAXone 1,000 MG in 0.9 % Sodium Chloride Mini Bag 100 ML IVPB SCH (09:53)
[2021-09-17] MEDS: *HR* Dabigatran 150 MG CAPSULE PO SCH (10:00)
[2021-09-17] MEDS: Azithromycin 500 MG in 0.9 % Sodium Chloride 250 ML IVPB SCH (10:44)
[2021-09-17] MEDS ORDERED: Isovue-370 500 ML BOTTLE IVP ONE (12:08)
[2021-09-17] MEDS ORDERED: *HR* Dextrose 50 % in Water (Syg) 50 ML SYRINGE IVP PRN (20:16)
[2021-09-17] MEDS ORDERED: Dextrose Gel 15 GM/37.5 ML TUBE PO PRN ×2 (20:16)
[2021-09-17] MEDS ORDERED: D5% in Water 1,000 ML IVC PRN (20:16)
[2021-09-17] MEDS: Insulin LISPRO 300 UNITS/3 ML VIAL SUBQ SCH (21:18)
[2021-09-18] MEDS: MethylPREDNISolone 40 MG/ML VIAL IVP SCH ×4 (00:29→23:20)
[2021-09-18] MEDS: Ipratropium/Albuterol Neb 3 ML IH PRN ×4 (07:38→20:24)
[2021-09-18] MEDS: Budesonide/Formoterol 160/4.5 1 PUFF INH IH SCH ×2 (07:38→20:24)
[2021-09-18] MEDS: cefTRIAXone 1,000 MG in 0.9 % Sodium Chloride Mini Bag 100 ML IVPB SCH (08:36)
[2021-09-18] MEDS: DilTIAZem CD (24hr) 240 MG CAP.ER.24H PO SCH (08:37)
[2021-09-18] MEDS: Furosemide 40 MG/4 ML VIAL IVP SCH ×2 (08:37→23:20)
[2021-09-18] MEDS: Metoprolol XL (24 HR) Succ 50 MG TAB.ER.24H PO SCH (08:37)
[2021-09-18] MEDS: Insulin LISPRO 300 UNITS/3 ML VIAL SUBQ SCH ×4 (08:51→23:21)
[2021-09-18 11:04] LABS: RBC,Pleural Fluid < 2000 RBC/mcL
[2021-09-18 11:17] LABS: Appearance of Pleural Fl Clear (Clear)
[2021-09-18] MEDS: Azithromycin 500 MG in 0.9 % Sodium Chloride 250 ML IVPB SCH (11:20)
[2021-09-18 11:28] LABS: Total Protein,Pleural Fluid 2.8 g/dL
[2021-09-18 11:37] LABS: Basophils,Pleural Fluid 0 %; Eosinophils,Pleural Fluid 0 %
[2021-09-18] MEDS: Insulin DETEMIR 100 UNIT/ML X5UNITS SUBQ SCH (13:05)
[2021-09-18] MEDS: *HR* Dabigatran 150 MG CAPSULE PO SCH (23:21)
[2021-09-19 06:07] LABS: Hematocrit 37.2 % (37.5-50.1); Hemoglobin 12.8 g/dL (12.9-16.9); Mean Corpuscular HGB Conc 34.4 g/dL (31.6-35.5); Mean Corpuscular Hemoglobin 31.9 pg (28.0-33.3); Mean Corpuscular Volume 92.8 fL (83.0-100.0); Mean Platelet Volume 8.9 fL (9.4-12.4); Platelet Count 225 K/mcL (140-400); Red Blood Count 4.01 M/mcL (4.19-5.50); Red Cell Distribution Width 13.3 % (11.5-14.5); White Blood Count 5.8 K/mcL (4.3-11.1)
[2021-09-19 06:28] LABS: BUN/Creatinine Ratio 63 (6-26); Blood Urea Nitrogen 40 mg/dL (8-23); Carbon Dioxide 37 mEq/L (23-29); Chloride 93 mEq/L (98-107); Glucose 293 mg/dL (70-105); Osmolality,Calculated 303 (280-300); Potassium 3.4 mEq/L (3.5-5.1); Sodium 136 mEq/L (136-145); eGFR For African Americans > 60 (> 60); eGFR For Non-African Americans > 60 (> 60)
[2021-09-19] MEDS: Budesonide/Formoterol 160/4.5 1 PUFF INH IH SCH ×2 (07:50→20:57)
[2021-09-19] MEDS: Ipratropium/Albuterol Neb 3 ML IH PRN ×5 (07:50→23:48)
[2021-09-19] MEDS: Insulin LISPRO 300 UNITS/3 ML VIAL SUBQ SCH ×5 (08:44→20:21)
[2021-09-19] MEDS: Furosemide 40 MG/4 ML VIAL IVP SCH ×2 (08:44→20:21)
[2021-09-19] MEDS: cefTRIAXone 1,000 MG in 0.9 % Sodium Chloride Mini Bag 100 ML IVPB SCH (08:45)
[2021-09-19] MEDS: *HR* Dabigatran 150 MG CAPSULE PO SCH ×2 (08:47→20:19)
[2021-09-19] MEDS: Metoprolol XL (24 HR) Succ 50 MG TAB.ER.24H PO SCH (08:47)
[2021-09-19] MEDS: Insulin DETEMIR 100 UNIT/ML X5UNITS SUBQ SCH ×2 (08:47→20:19)
[2021-09-19] MEDS: DilTIAZem CD (24hr) 240 MG CAP.ER.24H PO SCH (08:48)
[2021-09-19] MEDS: MethylPREDNISolone 40 MG/ML VIAL IVP SCH ×3 (08:50→18:59)
[2021-09-19] MEDS: Fluticasone Propionate Nasal 50 MCG/SPRAY BOTTLE NS PRN (12:11)
[2021-09-19] MEDS ORDERED: Insulin Human Regular 10 UNIT in 0.9 % Sodium Chloride 10 ML IV ONE (12:22)
[2021-09-19] MEDS ORDERED: Perflutren Lipid Microsphere 1.3 ML in 0.9 % Sodium Chloride 8.7 ML IVP PRN (17:15)
[2021-09-20 01:30] LABS: Basophils % 0.5 %; Hematocrit 38.6 % (37.5-50.1); Hemoglobin 12.8 g/dL (12.9-16.9); Immature Granulocytes % 2.7 % (0-4); Lymphocytes # 0.5 K/mcL (0.6-4.6); Mean Corpuscular HGB Conc 33.2 g/dL (31.6-35.5); Mean Corpuscular Hemoglobin 30.8 pg (28.0-33.3); Monocytes # 0.6 K/mcL (0.0-1.3); Monocytes % 7.2 %; Neutrophils # 7.3 K/mcL (1.6-8.9); Platelet Count 226 K/mcL (140-400); Red Blood Count 4.15 M/mcL (4.19-5.50); Red Cell Distribution Width 13.4 % (11.5-14.5); Segmented Neutrophils % 83.6 %
[2021-09-20 01:37] LABS: White Blood Count 8.7 K/mcL (4.3-11.1)
[2021-09-20 01:45] LABS: BUN/Creatinine Ratio 54 (6-26); Blood Urea Nitrogen 37 mg/dL (8-23); Calcium 8.4 mg/dL (8.6-10.3); Carbon Dioxide 38 mEq/L (23-29); Chloride 91 mEq/L (98-107); Glucose 250 mg/dL (70-105); Osmolality,Calculated 301 (280-300); Sodium 137 mEq/L (136-145); eGFR For African Americans > 60 (> 60); eGFR For Non-African Americans > 60 (> 60)
[2021-09-20] MEDS: Ipratropium/Albuterol Neb 3 ML IH PRN ×4 (04:05→19:32)
[2021-09-20] MEDS: MethylPREDNISolone 40 MG/ML VIAL IVP SCH ×2 (05:46→17:20)
[2021-09-20] MEDS: *HR* Dabigatran 150 MG CAPSULE PO SCH ×2 (08:05→21:30)
[2021-09-20] MEDS: DilTIAZem CD (24hr) 240 MG CAP.ER.24H PO SCH (08:06)
[2021-09-20] MEDS: Metoprolol XL (24 HR) Succ 50 MG TAB.ER.24H PO SCH (08:06)
[2021-09-20] MEDS: Insulin DETEMIR 100 UNIT/ML X5UNITS SUBQ SCH ×2 (08:07→21:30)
[2021-09-20] MEDS: Insulin LISPRO 300 UNITS/3 ML VIAL SUBQ SCH ×7 (08:07→21:29)
[2021-09-20] MEDS: Furosemide 40 MG/4 ML VIAL IVP SCH ×2 (09:14→21:31)
[2021-09-20] MEDS: Budesonide/Formoterol 160/4.5 1 PUFF INH IH SCH ×2 (10:50→19:32)
[2021-09-20] MEDS ORDERED: Furosemide 40 MG/4 ML VIAL IVP ONE (11:00)
[2021-09-20] MEDS: Spironolactone 25 MG TABLET PO SCH (15:46)
[2021-09-21 01:37] LABS: Basophils % 0.4 %; Hematocrit 39.4 % (37.5-50.1); Hemoglobin 13.4 g/dL (12.9-16.9); Immature Granulocytes % 2.5 % (0-4); Lymphocytes # 0.7 K/mcL (0.6-4.6); Lymphocytes % 6.8 %; Mean Corpuscular Hemoglobin 31.5 pg (28.0-33.3); Mean Corpuscular Volume 92.7 fL (83.0-100.0); Mean Platelet Volume 9.2 fL (9.4-12.4); Monocytes # 0.6 K/mcL (0.0-1.3); Monocytes % 5.4 %; Neutrophils # 9.2 K/mcL (1.6-8.9); Platelet Count 237 K/mcL (140-400); Red Blood Count 4.25 M/mcL (4.19-5.50); Red Cell Distribution Width 13.3 % (11.5-14.5); Segmented Neutrophils % 84.9 %; White Blood Count 10.8 K/mcL (4.3-11.1)
[2021-09-21 01:59] LABS: BUN/Creatinine Ratio 55 (6-26); Blood Urea Nitrogen 36 mg/dL (8-23); Calcium 8.3 mg/dL (8.6-10.3); Carbon Dioxide 37 mEq/L (23-29); Chloride 90 mEq/L (98-107); Glucose 299 mg/dL (70-105); Osmolality,Calculated 303 (280-300); Potassium 3.1 mEq/L (3.5-5.1); Sodium 137 mEq/L (136-145); eGFR For African Americans > 60 (> 60); eGFR For Non-African Americans > 60 (> 60)
[2021-09-21] MEDS: MethylPREDNISolone 40 MG/ML VIAL IVP SCH ×2 (05:00→17:09)
[2021-09-21] MEDS: Furosemide 40 MG/4 ML VIAL IVP SCH (07:47)
[2021-09-21] MEDS: Insulin LISPRO 300 UNITS/3 ML VIAL SUBQ SCH ×7 (07:48→20:27)
[2021-09-21] MEDS: *HR* Dabigatran 150 MG CAPSULE PO SCH ×2 (07:49→20:28)
[2021-09-21] MEDS: Spironolactone 25 MG TABLET PO SCH ×2 (07:50→12:10)
[2021-09-21] MEDS: Metoprolol XL (24 HR) Succ 50 MG TAB.ER.24H PO SCH (07:50)
[2021-09-21] MEDS: Budesonide/Formoterol 160/4.5 1 PUFF INH IH SCH ×2 (08:07→20:46)
[2021-09-21] MEDS: Insulin DETEMIR 100 UNIT/ML X5UNITS SUBQ SCH ×2 (08:09→20:27)
[2021-09-21] MEDS ORDERED: metOLazone 5 MG TABLET PO ONE (10:45)
[2021-09-21] MEDS ORDERED: Furosemide 240 MG in 0.9 % Sodium Chloride 96 ML IVC SCH (12:00)
[2021-09-21] MEDS: lisinopriL 5 MG TABLET PO SCH (12:09)
[2021-09-21] MEDS: Ipratropium/Albuterol Neb 3 ML IH PRN (20:46)
[2021-09-22 05:28] LABS: Basophils # 0.1 K/mcL (0.0-0.2); Basophils % 0.5 %; Hematocrit 44.5 % (37.5-50.1); Immature Granulocytes % 2.7 % (0-4); Lymphocytes % 10.3 %; Mean Corpuscular HGB Conc 34.6 g/dL (31.6-35.5); Mean Corpuscular Hemoglobin 31.6 pg (28.0-33.3); Mean Corpuscular Volume 91.4 fL (83.0-100.0); Mean Platelet Volume 8.9 fL (9.4-12.4); Monocytes # 1.1 K/mcL (0.0-1.3); Monocytes % 5.9 %; Neutrophils # 15.6 K/mcL (1.6-8.9); Platelet Count 256 K/mcL (140-400); Red Blood Count 4.87 M/mcL (4.19-5.50); Red Cell Distribution Width 13.2 % (11.5-14.5); Segmented Neutrophils % 80.6 %
[2021-09-22 05:29] LABS: Hemoglobin 15.4 g/dL (12.9-16.9); White Blood Count 19.3 K/mcL (4.3-11.1)
[2021-09-22 05:53] LABS: BUN/Creatinine Ratio 60 (6-26); Blood Urea Nitrogen 43 mg/dL (8-23); Calcium 9.4 mg/dL (8.6-10.3); Carbon Dioxide > 45 mEq/L (23-29); Chloride 83 mEq/L (98-107); Glucose 230 mg/dL (70-105); Osmolality,Calculated 296 (280-300); Potassium 3.3 mEq/L (3.5-5.1); Sodium 134 mEq/L (136-145); eGFR For African Americans > 60 (> 60); eGFR For Non-African Americans > 60 (> 60)
[2021-09-22] MEDS: MethylPREDNISolone 40 MG/ML VIAL IVP SCH (06:27)
[2021-09-22] MEDS: Insulin LISPRO 300 UNITS/3 ML VIAL SUBQ SCH ×7 (07:36→20:39)
[2021-09-22] MEDS: Metoprolol XL (24 HR) Succ 50 MG TAB.ER.24H PO SCH (08:07)
[2021-09-22] MEDS: lisinopriL 5 MG TABLET PO SCH (08:08)
[2021-09-22] MEDS: *HR* Dabigatran 150 MG CAPSULE PO SCH ×2 (08:08→20:38)
[2021-09-22] MEDS: Spironolactone 25 MG TABLET PO SCH (08:08)
[2021-09-22] MEDS ORDERED: acetaZOLAMIDE 250 MG TABLET PO SCH (09:00)
[2021-09-22] MEDS: Ipratropium/Albuterol Neb 3 ML IH PRN ×2 (09:07→20:43)
[2021-09-22] MEDS: Budesonide/Formoterol 160/4.5 1 PUFF INH IH SCH ×2 (09:07→20:44)
[2021-09-22] MEDS: Insulin DETEMIR 100 UNIT/ML X5UNITS SUBQ SCH ×2 (09:24→20:39)
[2021-09-22 11:54] LABS: ABG Base Excess 17 mEq/L (-2 to 3); ABG HCO3 43 mEq/L (21-27); ABG Oxygen Saturation 97 % (95-98); ABG PCO2 55 mmHg (35-45); ABG PH 7.51 pH Units (7.32-7.45); ABG PO2 80 mmHg (85-104); ABG TCO2 45 mEq/L (20-26)
[2021-09-23 03:14] LABS: Eosinophils % 0.2 %; Lymphocytes % 15.9 %
[2021-09-23 03:16] LABS: Basophils % 0.1 %; Eosinophils # 0.1 K/mcL (0.0-0.6); Hematocrit 48.9 % (37.5-50.1); Hemoglobin 16.3 g/dL (12.9-16.9); Immature Granulocytes % 3.1 % (0-4); Mean Corpuscular HGB Conc 33.3 g/dL (31.6-35.5); Mean Corpuscular Hemoglobin 30.8 pg (28.0-33.3); Mean Corpuscular Volume 92.4 fL (83.0-100.0); Mean Platelet Volume 8.9 fL (9.4-12.4); Monocytes # 2.1 K/mcL (0.0-1.3); Monocytes % 8.3 %; Platelet Count 278 K/mcL (140-400); Red Blood Count 5.29 M/mcL (4.19-5.50); Red Cell Distribution Width 13.3 % (11.5-14.5); Segmented Neutrophils % 72.4 %; White Blood Count 24.9 K/mcL (4.3-11.1)
[2021-09-23 03:41] LABS: BUN/Creatinine Ratio 62 (6-26); Blood Urea Nitrogen 44 mg/dL (8-23); Carbon Dioxide 38 mEq/L (23-29); Chloride 89 mEq/L (98-107); Glucose 72 mg/dL (70-105); Osmolality,Calculated 286 (280-300); Potassium 3.6 mEq/L (3.5-5.1); Sodium 133 mEq/L (136-145); eGFR For African Americans > 60 (> 60); eGFR For Non-African Americans > 60 (> 60)
[2021-09-23] MEDS: Insulin LISPRO 300 UNITS/3 ML VIAL SUBQ SCH ×7 (07:45→21:08)
[2021-09-23] MEDS: predniSONE 20 MG TABLET PO SCH (08:23)
[2021-09-23] MEDS: Metoprolol XL (24 HR) Succ 50 MG TAB.ER.24H PO SCH (08:24)
[2021-09-23] MEDS: *HR* Dabigatran 150 MG CAPSULE PO SCH ×2 (08:25→20:50)
[2021-09-23] MEDS: lisinopriL 5 MG TABLET PO SCH (08:25)
[2021-09-23] MEDS: Spironolactone 25 MG TABLET PO SCH (08:26)
[2021-09-23] MEDS: Insulin DETEMIR 100 UNIT/ML X5UNITS SUBQ SCH (08:35)
[2021-09-23] MEDS: Budesonide/Formoterol 160/4.5 1 PUFF INH IH SCH ×2 (08:37→21:18)
[2021-09-23] MEDS: Ipratropium/Albuterol Neb 3 ML IH PRN ×2 (08:37→21:18)
[2021-09-23] MEDS: acetaZOLAMIDE 250 MG in Water for inj. (sterile) 2.5 ML IVP SCH (09:29)
[2021-09-23] MEDS ORDERED: Insulin DETEMIR 100 UNIT/ML X5UNITS SUBQ SCH (21:00)
[2021-09-24] MEDS: Ipratropium/Albuterol Neb 3 ML IH PRN ×2 (00:36→08:58)
[2021-09-24 04:21] LABS: Basophils # 0.2 K/mcL (0.0-0.2); Basophils % 0.7 %; Eosinophils % 0.2 %; Hematocrit 45.5 % (37.5-50.1); Hemoglobin 15.5 g/dL (12.9-16.9); Lymphocytes # 3.6 K/mcL (0.6-4.6); Mean Corpuscular HGB Conc 34.1 g/dL (31.6-35.5); Mean Corpuscular Hemoglobin 31.6 pg (28.0-33.3); Mean Corpuscular Volume 92.9 fL (83.0-100.0); Mean Platelet Volume 8.9 fL (9.4-12.4); Monocytes # 1.5 K/mcL (0.0-1.3); Monocytes % 6.4 %; Neutrophils # 18.1 K/mcL (1.6-8.9); Platelet Count 256 K/mcL (140-400); Red Cell Distribution Width 13.5 % (11.5-14.5); Segmented Neutrophils % 74.7 %; White Blood Count 24.3 K/mcL (4.3-11.1)
[2021-09-24 04:39] LABS: BUN/Creatinine Ratio 69 (6-26); Blood Urea Nitrogen 46 mg/dL (8-23); Calcium 9.2 mg/dL (8.6-10.3); Carbon Dioxide 33 mEq/L (23-29); Chloride 96 mEq/L (98-107); Glucose 80 mg/dL (70-105); Osmolality,Calculated 289 (280-300); Potassium 4.3 mEq/L (3.5-5.1); Sodium 134 mEq/L (136-145); eGFR For African Americans > 60 (> 60); eGFR For Non-African Americans > 60 (> 60)
[2021-09-24] MEDS: Budesonide/Formoterol 160/4.5 1 PUFF INH IH SCH ×2 (08:57→21:16)
[2021-09-24] MEDS: Insulin LISPRO 300 UNITS/3 ML VIAL SUBQ SCH ×7 (09:37→20:52)
[2021-09-24] MEDS: Insulin DETEMIR 100 UNIT/ML X5UNITS SUBQ SCH (09:38)
[2021-09-24] MEDS: predniSONE 20 MG TABLET PO SCH (09:40)
[2021-09-24] MEDS: *HR* Dabigatran 150 MG CAPSULE PO SCH ×2 (09:40→20:52)
[2021-09-24] MEDS: Metoprolol XL (24 HR) Succ 50 MG TAB.ER.24H PO SCH (09:41)
[2021-09-24] MEDS: lisinopriL 5 MG TABLET PO SCH (09:42)
[2021-09-24] MEDS: Fluticasone Propionate Nasal 50 MCG/SPRAY BOTTLE NS SCH (09:43)
[2021-09-24] MEDS: acetaZOLAMIDE 250 MG in Water for inj. (sterile) 2.5 ML IVP SCH (10:32)
[2021-09-24] MEDS: Spironolactone 25 MG TABLET PO SCH (11:46)
[2021-09-24] MEDS ORDERED: Furosemide 40 MG TABLET PO SCH (17:00)
[2021-09-25 06:28] LABS: Basophils # 0.2 K/mcL (0.0-0.2); Basophils % 0.7 %; Eosinophils # 0.1 K/mcL (0.0-0.6); Eosinophils % 0.3 %; Hemoglobin 15.9 g/dL (12.9-16.9); Immature Granulocytes % 2.4 % (0-4); Lymphocytes # 4.4 K/mcL (0.6-4.6); Lymphocytes % 17.9 %; Mean Corpuscular HGB Conc 32.4 g/dL (31.6-35.5); Mean Corpuscular Hemoglobin 30.8 pg (28.0-33.3); Mean Platelet Volume 8.9 fL (9.4-12.4); Monocytes # 1.9 K/mcL (0.0-1.3); Monocytes % 7.6 %; Neutrophils # 17.6 K/mcL (1.6-8.9); Platelet Count 242 K/mcL (140-400); Red Blood Count 5.16 M/mcL (4.19-5.50); Red Cell Distribution Width 13.8 % (11.5-14.5); Segmented Neutrophils % 71.1 %; White Blood Count 24.7 K/mcL (4.3-11.1)
[2021-09-25 07:22] LABS: BUN/Creatinine Ratio 51 (6-26); Blood Urea Nitrogen 35 mg/dL (8-23); Calcium 9.3 mg/dL (8.6-10.3); Carbon Dioxide 29 mEq/L (23-29); Chloride 98 mEq/L (98-107); Glucose 66 mg/dL (70-105); Osmolality,Calculated 284 (280-300); Potassium 5.1 mEq/L (3.5-5.1); Sodium 134 mEq/L (136-145); eGFR For African Americans > 60 (> 60); eGFR For Non-African Americans > 60 (> 60)
[2021-09-25] MEDS: Ipratropium/Albuterol Neb 3 ML IH PRN ×2 (08:23→20:01)
[2021-09-25] MEDS: Budesonide/Formoterol 160/4.5 1 PUFF INH IH SCH ×2 (08:23→20:01)
[2021-09-25] MEDS: *HR* Dabigatran 150 MG CAPSULE PO SCH ×2 (09:42→21:20)
[2021-09-25] MEDS: Metoprolol XL (24 HR) Succ 50 MG TAB.ER.24H PO SCH (09:42)
[2021-09-25] MEDS: predniSONE 10 MG TABLET PO SCH (09:42)
[2021-09-25] MEDS: Spironolactone 25 MG TABLET PO SCH (09:43)
[2021-09-25] MEDS: Insulin DETEMIR 100 UNIT/ML X5UNITS SUBQ SCH (09:43)
[2021-09-25] MEDS: lisinopriL 5 MG TABLET PO SCH (09:43)
[2021-09-25] MEDS: Fluticasone Propionate Nasal 50 MCG/SPRAY BOTTLE NS SCH (09:46)
[2021-09-25] MEDS: Insulin LISPRO 300 UNITS/3 ML VIAL SUBQ SCH ×5 (09:46→21:20)
[2021-09-25] MEDS: Furosemide 40 MG TABLET PO SCH ×2 (09:48→17:18)
[2021-09-25] MEDS ORDERED: Isovue-370 500 ML BOTTLE IVP ONE (10:37)
[2021-09-25] MEDS ORDERED: Piperacillin/Tazobactam 3.375 GM in 0.9 % Sodium Chloride Mini Bag 100 ML IVPB SCH (18:00)
[2021-09-25] MEDS: Tiotropium 10 INH DOSE IH SCH (19:05)
[2021-09-25] MEDS: Ipratropium/Albuterol Neb 3 ML IH SCH (23:40)
[2021-09-26] MEDS: Piperacillin/Tazobactam 3.375 GM in 0.9 % Sodium Chloride Mini Bag 100 ML IVPB SCH ×3 (00:22→15:53)
[2021-09-26] MEDS: Ipratropium/Albuterol Neb 3 ML IH SCH ×6 (04:06→23:45)
[2021-09-26 05:28] LABS: Hematocrit 47.5 % (37.5-50.1); Hemoglobin 15.3 g/dL (12.9-16.9); Mean Corpuscular HGB Conc 32.2 g/dL (31.6-35.5); Mean Corpuscular Hemoglobin 31.2 pg (28.0-33.3); Mean Corpuscular Volume 96.7 fL (83.0-100.0); Mean Platelet Volume 9.3 fL (9.4-12.4); Platelet Count 158 K/mcL (140-400); Red Blood Count 4.91 M/mcL (4.19-5.50); Red Cell Distribution Width 14.1 % (11.5-14.5); White Blood Count 17.9 K/mcL (4.3-11.1)
[2021-09-26 06:12] LABS: BUN/Creatinine Ratio 50 (6-26); Blood Urea Nitrogen 32 mg/dL (8-23); Calcium 8.5 mg/dL (8.6-10.3); Carbon Dioxide 24 mEq/L (23-29); Chloride 98 mEq/L (98-107); Glucose 48 mg/dL (70-105); Osmolality,Calculated 278 (280-300); Potassium 4.7 mEq/L (3.5-5.1); Sodium 132 mEq/L (136-145); eGFR For African Americans > 60 (> 60); eGFR For Non-African Americans > 60 (> 60)
[2021-09-26] MEDS: Budesonide/Formoterol 160/4.5 1 PUFF INH IH SCH ×2 (07:26→20:24)
[2021-09-26] MEDS: Tiotropium 10 INH DOSE IH SCH (07:28)
[2021-09-26] MEDS: Insulin LISPRO 300 UNITS/3 ML VIAL SUBQ SCH ×4 (08:55→20:38)
[2021-09-26] MEDS: *HR* Dabigatran 150 MG CAPSULE PO SCH ×2 (09:03→20:38)
[2021-09-26] MEDS: predniSONE 10 MG TABLET PO SCH (09:04)
[2021-09-26] MEDS: Spironolactone 25 MG TABLET PO SCH (09:04)
[2021-09-26] MEDS: Furosemide 40 MG TABLET PO SCH ×2 (09:05→16:23)
[2021-09-26] MEDS: lisinopriL 5 MG TABLET PO SCH (09:05)
[2021-09-26] MEDS: Metoprolol XL (24 HR) Succ 50 MG TAB.ER.24H PO SCH (09:05)
[2021-09-26] MEDS: Fluticasone Propionate Nasal 50 MCG/SPRAY BOTTLE NS SCH (09:06)
[2021-09-26] MEDS: Insulin DETEMIR 100 UNIT/ML X5UNITS SUBQ SCH (09:24)
[2021-09-26] MEDS: MethylPREDNISolone 40 MG/ML VIAL IVP SCH (17:28)
[2021-09-26] MEDS: Doxycycline 100 MG in 0.9 % Sodium Chloride Mini Bag 100 ML IVPB SCH (17:41)
[2021-09-26] MEDS ORDERED: Acetaminophen IV 1,000 MG/100 ML BAG IVPB ONE (21:50)
[2021-09-27 02:39] LABS: Hematocrit 40.8 % (37.5-50.1); Hemoglobin 14.1 g/dL (12.9-16.9); Mean Corpuscular HGB Conc 34.6 g/dL (31.6-35.5); Mean Corpuscular Hemoglobin 31.4 pg (28.0-33.3); Mean Corpuscular Volume 90.9 fL (83.0-100.0); Mean Platelet Volume 8.8 fL (9.4-12.4); Platelet Count 141 K/mcL (140-400); Red Blood Count 4.49 M/mcL (4.19-5.50); White Blood Count 12.3 K/mcL (4.3-11.1)
[2021-09-27 02:57] LABS: BUN/Creatinine Ratio 45 (6-26); Blood Urea Nitrogen 33 mg/dL (8-23); Calcium 7.7 mg/dL (8.6-10.3); Carbon Dioxide 26 mEq/L (23-29); Chloride 93 mEq/L (98-107); Glucose 272 mg/dL (70-105); Osmolality,Calculated 281 (280-300); Potassium 3.9 mEq/L (3.5-5.1); Sodium 127 mEq/L (136-145); eGFR For African Americans > 60 (> 60); eGFR For Non-African Americans > 60 (> 60)
[2021-09-27] MEDS: Piperacillin/Tazobactam 3.375 GM in 0.9 % Sodium Chloride Mini Bag 100 ML IVPB SCH (03:16)
[2021-09-27] MEDS: Ipratropium/Albuterol Neb 3 ML IH SCH ×4 (03:33→15:31)
[2021-09-27] MEDS: MethylPREDNISolone 40 MG/ML VIAL IVP SCH ×2 (05:17→17:08)
[2021-09-27] MEDS: Doxycycline 100 MG in 0.9 % Sodium Chloride Mini Bag 100 ML IVPB SCH (05:17)
[2021-09-27] MEDS: Budesonide/Formoterol 160/4.5 1 PUFF INH IH SCH (07:52)
[2021-09-27] MEDS: Furosemide 40 MG TABLET PO SCH (08:52)
[2021-09-27] MEDS: *HR* Dabigatran 150 MG CAPSULE PO SCH ×2 (08:52→20:56)
[2021-09-27] MEDS: Spironolactone 25 MG TABLET PO SCH (08:53)
[2021-09-27] MEDS: Metoprolol XL (24 HR) Succ 50 MG TAB.ER.24H PO SCH (08:54)
[2021-09-27] MEDS: Insulin LISPRO 300 UNITS/3 ML VIAL SUBQ SCH ×4 (09:05→20:45)
[2021-09-27] MEDS: Fluticasone Propionate Nasal 50 MCG/SPRAY BOTTLE NS SCH (09:06)
[2021-09-27] MEDS: Insulin DETEMIR 100 UNIT/ML X5UNITS SUBQ SCH (09:06)
[2021-09-27] MEDS ORDERED: Acetaminophen 325 MG TABLET PO PRN (10:41)
[2021-09-27] MEDS ORDERED: Piperacillin/Tazobactam 3.375 GM in 0.9 % Sodium Chloride Mini Bag 100 ML IVPB SCH (11:00)
[2021-09-27] MEDS ORDERED: *HR* Metoprolol 5 MG/5 ML VIAL IVP ONE (18:10)
[2021-09-27] MEDS: Doxycycline 100 MG CAPSULE PO SCH (20:57)
[2021-09-28] MEDS: Budesonide/Formoterol 160/4.5 1 PUFF INH IH SCH ×4 (00:16→20:52)
[2021-09-28] MEDS: Ipratropium Neb 0.5 MG NEBULIZER IH SCH ×5 (00:17→20:51)
[2021-09-28] MEDS: Levalbuterol Neb 1.25 MG/3 ML IH SCH ×5 (00:17→20:51)
[2021-09-28] MEDS: MethylPREDNISolone 40 MG/ML VIAL IVP SCH ×2 (06:17→16:27)
[2021-09-28 07:04] LABS: Red Blood Count 4.77 M/mcL (4.19-5.50)
[2021-09-28 07:06] LABS: Hematocrit 43.7 % (37.5-50.1); Hemoglobin 14.9 g/dL (12.9-16.9); Immature Platelets 5.6 % (1.1-6.1); Mean Corpuscular HGB Conc 34.1 g/dL (31.6-35.5); Mean Corpuscular Hemoglobin 31.2 pg (28.0-33.3); Mean Corpuscular Volume 91.6 fL (83.0-100.0); Mean Platelet Volume 9.5 fL (9.4-12.4); Red Cell Distribution Width 14.2 % (11.5-14.5); White Blood Count 18.4 K/mcL (4.3-11.1)
[2021-09-28 07:28] LABS: BUN/Creatinine Ratio 44 (6-26); Blood Urea Nitrogen 30 mg/dL (8-23); Calcium 8.1 mg/dL (8.6-10.3); Carbon Dioxide 22 mEq/L (23-29); Chloride 89 mEq/L (98-107); Glucose 106 mg/dL (70-105); Osmolality,Calculated 267 (280-300); Potassium 3.4 mEq/L (3.5-5.1); Sodium 125 mEq/L (136-145); eGFR For African Americans > 60 (> 60); eGFR For Non-African Americans > 60 (> 60)
[2021-09-28] MEDS: Doxycycline 100 MG CAPSULE PO SCH ×2 (08:30→21:30)
[2021-09-28] MEDS: Metoprolol XL (24 HR) Succ 50 MG TAB.ER.24H PO SCH (08:30)
[2021-09-28] MEDS: Spironolactone 25 MG TABLET PO SCH (08:32)
[2021-09-28] MEDS: Insulin DETEMIR 100 UNIT/ML X5UNITS SUBQ SCH (08:33)
[2021-09-28] MEDS: Furosemide 40 MG TABLET PO SCH (08:33)
[2021-09-28] MEDS: Fluticasone Propionate Nasal 50 MCG/SPRAY BOTTLE NS SCH (08:34)
[2021-09-28] MEDS: *HR* Dabigatran 150 MG CAPSULE PO SCH ×2 (08:34→21:35)
[2021-09-28] MEDS: Insulin LISPRO 300 UNITS/3 ML VIAL SUBQ SCH ×4 (08:36→21:30)
[2021-09-28] MEDS ORDERED: predniSONE 20 MG TABLET PO SCH (09:00)
[2021-09-28] MEDS: Cefdinir 300 MG CAPSULE PO SCH ×2 (10:30→21:30)
[2021-09-28 18:55] LABS: Adenovirus Not Detected (Not Detect); Coronavirus 229E Not Detected (Not Detect); Coronavirus HKU1 Not Detected (Not Detect); Coronavirus NL63 Not Detected (Not Detect); Coronavirus OC43 Not Detected (Not Detect)
[2021-09-28 18:56] LABS: Bordetella Pertussis Not Detected (Not Detect); Chlamydophila pneumoniae Not Detected (Not Detect); Human Metapneumovirus Not Detected (Not Detect); Human Rhinovirus/Enterovirus Not Detected (Not Detect); Influenza A Subtype 2009 H1 Not Detected (Not Detect); Influenza B Not Detected (Not Detect); Mycoplasma pneumoniae Not Detected (Not Detect); Parainfluenza Virus 1 Not Detected (Not Detect); Parainfluenza Virus 2 Not Detected (Not Detect); Parainfluenza Virus 3 Not Detected (Not Detect); Parainfluenza Virus 4 Not Detected (Not Detect); Respiratory Syncytial Virus Not Detected (Not Detect); SARS-CoV-2 DETECTED (Not Detect)
[2021-09-28] MEDS: *HR* Metoprolol 5 MG/5 ML VIAL IVP PRN (19:04)
[2021-09-28] MEDS ORDERED: Dexamethasone Sodium Phos/PF 10 MG/ML VIAL IVP ONE (19:24)
[2021-09-28 20:35] LABS: BUN/Creatinine Ratio 48 (6-26); Blood Urea Nitrogen 29 mg/dL (8-23); C-Reactive Protein 274 mg/L (Less than 10); Carbon Dioxide 24 mEq/L (23-29); Chloride 89 mEq/L (98-107); Glucose 127 mg/dL (70-105); Lactate Dehydrogenase 212 Units/L (140-271); Osmolality,Calculated 261 (280-300); Potassium 4.1 mEq/L (3.5-5.1); Sodium 122 mEq/L (136-145); eGFR For African Americans > 60 (> 60); eGFR For Non-African Americans > 60 (> 60)
[2021-09-28 20:53] LABS: Ferritin 1042 ng/mL (20-250)
[2021-09-28] MEDS ORDERED: Furosemide 20 MG/2 ML VIAL IVP ONE (20:55)
[2021-09-28 21:25] LABS: Alanine Aminotransferase 21 Units/L (7-52); Albumin/Globulin Ratio 1.2 (1.1-2.2); Alkaline Phosphatase 40 Units/L (34-104); Aspartate Amino Transferase 22 Units/L (13-39); Bilirubin,Direct 0.4 mg/dL (0.0-0.2); Bilirubin,Indirect 0.7 mg/dL (0.0-1.0); Bilirubin,Total 1.1 mg/dL (0.3-1.0); Globulin 2.5 g/dL (2.4-3.5); Total Protein 5.5 g/dL (6.4-8.9)
[2021-09-28] MEDS ORDERED: Remdesivir 200 MG in 0.9 % Sodium Chloride 100 ML IVPB ONE (23:00)
[2021-09-29 03:19] LABS: Albumin/Globulin Ratio 1.3 (1.1-2.2); Bilirubin,Direct 0.2 mg/dL (0.0-0.2); Bilirubin,Indirect 0.7 mg/dL (0.0-1.0); Bilirubin,Total 0.9 mg/dL (0.3-1.0); Globulin 2.4 g/dL (2.4-3.5); Total Protein 5.4 g/dL (6.4-8.9)
[2021-09-29] MEDS: Ipratropium 1 PUFF INHALER IH SCH ×4 (03:34→20:59)
[2021-09-29 07:47] LABS: BUN/Creatinine Ratio 53 (6-26); Blood Urea Nitrogen 31 mg/dL (8-23); Calcium 8.4 mg/dL (8.6-10.3); Carbon Dioxide 25 mEq/L (23-29); Chloride 91 mEq/L (98-107); Glucose 139 mg/dL (70-105); Osmolality,Calculated 269 (280-300); Potassium 4.6 mEq/L (3.5-5.1); Sodium 125 mEq/L (136-145); eGFR For African Americans > 60 (> 60); eGFR For Non-African Americans > 60 (> 60)
[2021-09-29] MEDS: Metoprolol XL (24 HR) Succ 50 MG TAB.ER.24H PO SCH ×2 (07:50→22:44)
[2021-09-29] MEDS: Cefdinir 300 MG CAPSULE PO SCH (07:50)
[2021-09-29] MEDS: *HR* Dabigatran 150 MG CAPSULE PO SCH ×2 (07:51→22:43)
[2021-09-29] MEDS: Spironolactone 25 MG TABLET PO SCH (07:51)
[2021-09-29] MEDS: Insulin LISPRO 300 UNITS/3 ML VIAL SUBQ SCH ×4 (07:51→22:01)
[2021-09-29] MEDS: Doxycycline 100 MG CAPSULE PO SCH ×2 (07:52→22:44)
[2021-09-29] MEDS: Fluticasone Propionate Nasal 50 MCG/SPRAY BOTTLE NS SCH (08:10)
[2021-09-29] MEDS: Insulin DETEMIR 100 UNIT/ML X5UNITS SUBQ SCH (08:10)
[2021-09-29] MEDS: *HR* Metoprolol 5 MG/5 ML VIAL IVP PRN ×2 (08:11→14:35)
[2021-09-29] MEDS: cefTRIAXone 1,000 MG in 0.9 % Sodium Chloride Mini Bag 100 ML IVPB SCH (11:24)
[2021-09-29] MEDS: *HR* Digoxin 0.5 MG/2 ML AMPUL IVP SCH ×2 (16:12→22:44)
[2021-09-29] MEDS: Budesonide/Formoterol 160/4.5 1 PUFF INH IH SCH (20:58)
[2021-09-29] MEDS ORDERED: 0.9 % Sodium Chloride 250 ML IVC ONE (22:08)
[2021-09-29] MEDS: Remdesivir 100 MG in 0.9 % Sodium Chloride 100 ML IVPB SCH (22:45)
[2021-09-30] MEDS: *HR* Digoxin 0.5 MG/2 ML AMPUL IVP SCH ×2 (03:45→09:08)
[2021-09-30] MEDS: Ipratropium 1 PUFF INHALER IH SCH ×4 (03:56→20:29)
[2021-09-30] MEDS ORDERED: Artificial Tears SOLN 15 ML BOTTLE BOTH EYES PRN (06:25)
[2021-09-30] MEDS: Budesonide/Formoterol 160/4.5 1 PUFF INH IH SCH ×2 (08:11→20:29)
[2021-09-30] MEDS: Insulin LISPRO 300 UNITS/3 ML VIAL SUBQ SCH ×4 (08:43→22:00)
[2021-09-30] MEDS: Metoprolol XL (24 HR) Succ 50 MG TAB.ER.24H PO SCH ×2 (09:06→21:59)
[2021-09-30] MEDS: *HR* Dabigatran 150 MG CAPSULE PO SCH ×2 (09:06→21:59)
[2021-09-30] MEDS: Doxycycline 100 MG CAPSULE PO SCH ×2 (09:06→22:00)
[2021-09-30] MEDS: cefTRIAXone 1,000 MG in 0.9 % Sodium Chloride Mini Bag 100 ML IVPB SCH (09:07)
[2021-09-30] MEDS: Spironolactone 25 MG TABLET PO SCH (09:07)
[2021-09-30] MEDS: Fluticasone Propionate Nasal 50 MCG/SPRAY BOTTLE NS SCH (09:08)
[2021-09-30] MEDS: Insulin DETEMIR 100 UNIT/ML X5UNITS SUBQ SCH (09:22)
[2021-09-30 11:01] LABS: Hematocrit 40.5 % (37.5-50.1)
[2021-09-30 11:03] LABS: Hemoglobin 13.8 g/dL (12.9-16.9); Immature Platelets 6.5 % (1.1-6.1); Lymphocytes # 0.5 K/mcL (0.6-4.6); Mean Corpuscular HGB Conc 34.1 g/dL (31.6-35.5); Mean Corpuscular Hemoglobin 30.8 pg (28.0-33.3); Mean Corpuscular Volume 90.4 fL (83.0-100.0); Mean Platelet Volume 10.3 fL (9.4-12.4); Red Blood Count 4.48 M/mcL (4.19-5.50); Red Cell Distribution Width 14.1 % (11.5-14.5); White Blood Count 24.1 K/mcL (4.3-11.1)
[2021-09-30 11:21] LABS: Alanine Aminotransferase 28 Units/L (7-52); Albumin 2.7 g/dL (3.5-5.7); Albumin/Globulin Ratio 1.1 (1.1-2.2); Alkaline Phosphatase 47 Units/L (34-104); Aspartate Amino Transferase 30 Units/L (13-39); BUN/Creatinine Ratio 70 (6-26); Bilirubin,Direct 0.3 mg/dL (0.0-0.2); Bilirubin,Indirect 0.5 mg/dL (0.0-1.0); Bilirubin,Total 0.8 mg/dL (0.3-1.0); Blood Urea Nitrogen 37 mg/dL (8-23); C-Reactive Protein 170 mg/L (Less than 10); Calcium 7.9 mg/dL (8.6-10.3); Carbon Dioxide 24 mEq/L (23-29); Chloride 89 mEq/L (98-107); Globulin 2.5 g/dL (2.4-3.5); Glucose 176 mg/dL (70-105); Osmolality,Calculated 267 (280-300); Potassium 4.9 mEq/L (3.5-5.1); Sodium 122 mEq/L (136-145); Total Protein 5.2 g/dL (6.4-8.9); eGFR For African Americans > 60 (> 60); eGFR For Non-African Americans > 60 (> 60)
[2021-09-30 11:31] LABS: Platelet Count 55 K/mcL (140-400)
[2021-09-30 11:34] LABS: Monocytes # 0.5 K/mcL (0.0-1.3); Neutrophils # 23.1 K/mcL (1.6-8.9); Platelet Estimate Decreased (Normal)
[2021-09-30] MEDS: Remdesivir 100 MG in 0.9 % Sodium Chloride 100 ML IVPB SCH (22:00)
[2021-10-01] MEDS: Ipratropium 1 PUFF INHALER IH SCH ×4 (04:13→20:06)
[2021-10-01 05:48] LABS: Hematocrit 39.9 % (37.5-50.1); Hemoglobin 14.3 g/dL (12.9-16.9); Mean Corpuscular HGB Conc 35.8 g/dL (31.6-35.5); Mean Corpuscular Hemoglobin 31.9 pg (28.0-33.3); Mean Corpuscular Volume 89.1 fL (83.0-100.0); Mean Platelet Volume 10.6 fL (9.4-12.4); Red Blood Count 4.48 M/mcL (4.19-5.50); Red Cell Distribution Width 13.7 % (11.5-14.5); White Blood Count 19.1 K/mcL (4.3-11.1)
[2021-10-01 06:03] LABS: Alanine Aminotransferase 26 Units/L (7-52); Albumin 2.8 g/dL (3.5-5.7); Albumin/Globulin Ratio 1.2 (1.1-2.2); Alkaline Phosphatase 51 Units/L (34-104); Aspartate Amino Transferase 19 Units/L (13-39); BUN/Creatinine Ratio 83 (6-26); Bilirubin,Direct 0.2 mg/dL (0.0-0.2); Bilirubin,Indirect 0.5 mg/dL (0.0-1.0); Bilirubin,Total 0.7 mg/dL (0.3-1.0); Blood Urea Nitrogen 35 mg/dL (8-23); Calcium 8.3 mg/dL (8.6-10.3); Carbon Dioxide 25 mEq/L (23-29); Chloride 92 mEq/L (98-107); Digoxin 1.4 ng/mL (0.8-2.0); Globulin 2.3 g/dL (2.4-3.5); Glucose 161 mg/dL (70-105); Osmolality,Calculated 267 (280-300); Potassium 4.8 mEq/L (3.5-5.1); Sodium 123 mEq/L (136-145); Total Protein 5.1 g/dL (6.4-8.9); eGFR For African Americans > 60 (> 60); eGFR For Non-African Americans > 60 (> 60)
[2021-10-01] MEDS: Budesonide/Formoterol 160/4.5 1 PUFF INH IH SCH ×2 (07:48→20:06)
[2021-10-01] MEDS: *HR* Digoxin 0.125 MG TABLET PO SCH (09:20)
[2021-10-01] MEDS: Insulin DETEMIR 100 UNIT/ML X5UNITS SUBQ SCH (09:20)
[2021-10-01] MEDS: Metoprolol XL (24 HR) Succ 50 MG TAB.ER.24H PO SCH ×2 (09:20→22:05)
[2021-10-01] MEDS: Doxycycline 100 MG CAPSULE PO SCH ×2 (09:20→22:05)
[2021-10-01] MEDS: *HR* Dabigatran 150 MG CAPSULE PO SCH ×2 (09:20→22:05)
[2021-10-01] MEDS: Insulin LISPRO 300 UNITS/3 ML VIAL SUBQ SCH ×4 (09:21→22:07)
[2021-10-01] MEDS: Fluticasone Propionate Nasal 50 MCG/SPRAY BOTTLE NS SCH (09:21)
[2021-10-01] MEDS: cefTRIAXone 1,000 MG in 0.9 % Sodium Chloride Mini Bag 100 ML IVPB SCH (09:21)
[2021-10-01] MEDS: Saliva Stimulant 44.3ml BOTTLE PO PRN (09:22)
[2021-10-01] MEDS: Saline Nasal Spray 44 ML BOTTLE NS PRN (09:22)
[2021-10-01] MEDS: Benzonatate 100 MG CAPSULE PO PRN (11:28)
[2021-10-01] MEDS ORDERED: Furosemide 40 MG/4 ML VIAL IVP ONE ×2 (12:03→16:09)
[2021-10-01] MEDS: Remdesivir 100 MG in 0.9 % Sodium Chloride 100 ML IVPB SCH (22:22)
[2021-10-02 02:51] LABS: Immature Granulocytes % 0.5 % (0-4)
[2021-10-02 02:52] LABS: Basophils % 0.1 %; Immature Platelets 8.5 % (1.1-6.1); Lymphocytes # 1.1 K/mcL (0.6-4.6); Lymphocytes % 7.6 %; Mean Corpuscular HGB Conc 34.1 g/dL (31.6-35.5); Mean Corpuscular Hemoglobin 30.7 pg (28.0-33.3); Mean Corpuscular Volume 89.9 fL (83.0-100.0); Mean Platelet Volume 10.3 fL (9.4-12.4); Monocytes # 0.4 K/mcL (0.0-1.3); Monocytes % 2.6 %; Red Blood Count 4.56 M/mcL (4.19-5.50); Red Cell Distribution Width 13.9 % (11.5-14.5); Segmented Neutrophils % 89.2 %; White Blood Count 14.2 K/mcL (4.3-11.1)
[2021-10-02 02:56] LABS: Neutrophils # 12.7 K/mcL (1.6-8.9); Platelet Count 52 K/mcL (140-400)
[2021-10-02 03:10] LABS: BUN/Creatinine Ratio 73 (6-26); Blood Urea Nitrogen 32 mg/dL (8-23); Calcium 7.8 mg/dL (8.6-10.3); Carbon Dioxide 24 mEq/L (23-29); Chloride 96 mEq/L (98-107); Glucose 121 mg/dL (70-105); Osmolality,Calculated 270 (280-300); Potassium 4.8 mEq/L (3.5-5.1); Sodium 126 mEq/L (136-145); eGFR For African Americans > 60 (> 60); eGFR For Non-African Americans > 60 (> 60)
[2021-10-02 03:11] LABS: Albumin 2.7 g/dL (3.5-5.7); Albumin/Globulin Ratio 1.1 (1.1-2.2); Bilirubin,Direct 0.2 mg/dL (0.0-0.2); Bilirubin,Indirect 0.4 mg/dL (0.0-1.0); Bilirubin,Total 0.6 mg/dL (0.3-1.0); Globulin 2.4 g/dL (2.4-3.5); Total Protein 5.1 g/dL (6.4-8.9)
[2021-10-02] MEDS: Ipratropium 1 PUFF INHALER IH SCH ×4 (03:50→20:04)
[2021-10-02] MEDS: Insulin LISPRO 300 UNITS/3 ML VIAL SUBQ SCH ×4 (07:39→21:38)
[2021-10-02] MEDS: Insulin DETEMIR 100 UNIT/ML X5UNITS SUBQ SCH (07:55)
[2021-10-02] MEDS: *HR* Dabigatran 150 MG CAPSULE PO SCH ×2 (07:56→21:37)
[2021-10-02] MEDS: Benzonatate 100 MG CAPSULE PO PRN ×2 (07:56→16:55)
[2021-10-02] MEDS: Doxycycline 100 MG CAPSULE PO SCH ×2 (07:56→21:37)
[2021-10-02] MEDS: *HR* Digoxin 0.125 MG TABLET PO SCH (07:56)
[2021-10-02] MEDS: Metoprolol XL (24 HR) Succ 50 MG TAB.ER.24H PO SCH ×2 (07:56→21:38)
[2021-10-02] MEDS: Fluticasone Propionate Nasal 50 MCG/SPRAY BOTTLE NS SCH (07:57)
[2021-10-02] MEDS: Saline Nasal Spray 44 ML BOTTLE NS PRN (07:57)
[2021-10-02] MEDS: cefTRIAXone 1,000 MG in 0.9 % Sodium Chloride Mini Bag 100 ML IVPB SCH (07:57)
[2021-10-02] MEDS: Budesonide/Formoterol 160/4.5 1 PUFF INH IH SCH ×2 (08:50→20:05)
[2021-10-02] MEDS: Remdesivir 100 MG in 0.9 % Sodium Chloride 100 ML IVPB SCH (21:44)
[2021-10-03 02:12] LABS: Hematocrit 45.1 % (37.5-50.1); Hemoglobin 14.8 g/dL (12.9-16.9); Mean Corpuscular HGB Conc 32.8 g/dL (31.6-35.5); Mean Corpuscular Hemoglobin 30.5 pg (28.0-33.3); Mean Platelet Volume 10.9 fL (9.4-12.4); Red Blood Count 4.85 M/mcL (4.19-5.50); White Blood Count 12.6 K/mcL (4.3-11.1)
[2021-10-03] MEDS: Ipratropium 1 PUFF INHALER IH SCH ×4 (04:19→20:10)
[2021-10-03 05:16] LABS: Albumin 2.7 g/dL (3.5-5.7); BUN/Creatinine Ratio 76 (6-26); Bilirubin,Indirect 0.6 mg/dL (0.0-1.0); Bilirubin,Total 0.6 mg/dL (0.3-1.0); Blood Urea Nitrogen 31 mg/dL (8-23); Calcium 8.1 mg/dL (8.6-10.3); Carbon Dioxide 20 mEq/L (23-29); Chloride 96 mEq/L (98-107); Globulin 2.7 g/dL (2.4-3.5); Glucose 93 mg/dL (70-105); Osmolality,Calculated 274 (280-300); Potassium 5.1 mEq/L (3.5-5.1); Sodium 129 mEq/L (136-145); Total Protein 5.4 g/dL (6.4-8.9); eGFR For African Americans > 60 (> 60); eGFR For Non-African Americans > 60 (> 60)
[2021-10-03] MEDS: Budesonide/Formoterol 160/4.5 1 PUFF INH IH SCH ×2 (07:46→20:10)
[2021-10-03] MEDS: Insulin LISPRO 300 UNITS/3 ML VIAL SUBQ SCH ×4 (08:03→20:59)
[2021-10-03] MEDS: *HR* Dabigatran 150 MG CAPSULE PO SCH ×2 (08:13→20:55)
[2021-10-03] MEDS: Metoprolol XL (24 HR) Succ 50 MG TAB.ER.24H PO SCH ×2 (08:13→20:55)
[2021-10-03] MEDS: *HR* Digoxin 0.125 MG TABLET PO SCH (08:13)
[2021-10-03] MEDS: Fluticasone Propionate Nasal 50 MCG/SPRAY BOTTLE NS SCH (08:13)
[2021-10-03] MEDS: Doxycycline 100 MG CAPSULE PO SCH (08:13)
[2021-10-03] MEDS: cefTRIAXone 1,000 MG in 0.9 % Sodium Chloride Mini Bag 100 ML IVPB SCH (08:14)
[2021-10-03] MEDS ORDERED: Furosemide 40 MG/4 ML VIAL IVP ONE (11:36)
[2021-10-03] MEDS: Insulin DETEMIR 100 UNIT/ML X5UNITS SUBQ SCH (12:42)
[2021-10-03] MEDS: Benzonatate 100 MG CAPSULE PO PRN (17:20)
[2021-10-04] MEDS: Ipratropium 1 PUFF INHALER IH SCH ×4 (04:32→19:58)
[2021-10-04 06:04] LABS: Hematocrit 43.7 % (37.5-50.1); Hemoglobin 14.6 g/dL (12.9-16.9); Immature Platelets 7.7 % (1.1-6.1); Mean Corpuscular HGB Conc 33.4 g/dL (31.6-35.5); Mean Corpuscular Hemoglobin 30.7 pg (28.0-33.3); Mean Platelet Volume 10.1 fL (9.4-12.4); Red Blood Count 4.75 M/mcL (4.19-5.50); Red Cell Distribution Width 13.9 % (11.5-14.5); White Blood Count 9.2 K/mcL (4.3-11.1)
[2021-10-04] MEDS: Budesonide/Formoterol 160/4.5 1 PUFF INH IH SCH ×2 (07:52→19:58)
[2021-10-04 08:02] LABS: BUN/Creatinine Ratio 64 (6-26); Blood Urea Nitrogen 29 mg/dL (8-23); Calcium 8.3 mg/dL (8.6-10.3); Carbon Dioxide 31 mEq/L (23-29); Chloride 97 mEq/L (98-107); Glucose 82 mg/dL (70-105); Osmolality,Calculated 281 (280-300); Potassium 4.6 mEq/L (3.5-5.1); Sodium 133 mEq/L (136-145); eGFR For African Americans > 60 (> 60); eGFR For Non-African Americans > 60 (> 60)
[2021-10-04 09:50] LABS: Basophils % 0.3 %; Eosinophils # 0.1 K/mcL (0.0-0.6); Eosinophils % 0.6 %; Hematocrit 44.5 % (37.5-50.1); Hemoglobin 14.9 g/dL (12.9-16.9); Immature Granulocytes % 0.8 % (0-4); Immature Platelets 6.9 % (1.1-6.1); Lymphocytes # 1.2 K/mcL (0.6-4.6); Lymphocytes % 13.2 %; Mean Corpuscular HGB Conc 33.5 g/dL (31.6-35.5); Mean Corpuscular Volume 92.7 fL (83.0-100.0); Mean Platelet Volume 10.3 fL (9.4-12.4); Monocytes # 0.5 K/mcL (0.0-1.3); Monocytes % 4.8 %; Neutrophils # 7.5 K/mcL (1.6-8.9); Nucleated Red Blood Cells 0.2 /100 WBC (0); Platelet Count 134 K/mcL (140-400); Segmented Neutrophils % 80.3 %; White Blood Count 9.3 K/mcL (4.3-11.1)
[2021-10-04] MEDS: Insulin LISPRO 300 UNITS/3 ML VIAL SUBQ SCH ×4 (09:51→21:12)
[2021-10-04] MEDS: *HR* Dabigatran 150 MG CAPSULE PO SCH ×2 (09:51→21:11)
[2021-10-04] MEDS: Metoprolol XL (24 HR) Succ 50 MG TAB.ER.24H PO SCH ×2 (09:52→21:11)
[2021-10-04] MEDS: *HR* Digoxin 0.125 MG TABLET PO SCH (09:53)
[2021-10-04] MEDS: cefTRIAXone 1,000 MG in 0.9 % Sodium Chloride Mini Bag 100 ML IVPB SCH (09:54)
[2021-10-04] MEDS: Fluticasone Propionate Nasal 50 MCG/SPRAY BOTTLE NS SCH (09:55)
[2021-10-04] MEDS: Furosemide 40 MG/4 ML VIAL IVP SCH (12:17)
[2021-10-05] MEDS: Ipratropium 1 PUFF INHALER IH SCH ×4 (04:09→20:19)
[2021-10-05 06:07] LABS: Hematocrit 43.5 % (37.5-50.1); Hemoglobin 14.7 g/dL (12.9-16.9); Mean Corpuscular HGB Conc 33.8 g/dL (31.6-35.5); Mean Corpuscular Hemoglobin 30.6 pg (28.0-33.3); Mean Corpuscular Volume 90.6 fL (83.0-100.0); Mean Platelet Volume 9.9 fL (9.4-12.4); Platelet Count 168 K/mcL (140-400); Red Cell Distribution Width 14.1 % (11.5-14.5); White Blood Count 7.2 K/mcL (4.3-11.1)
[2021-10-05 06:11] LABS: BUN/Creatinine Ratio 72 (6-26); Blood Urea Nitrogen 28 mg/dL (8-23); Calcium 8.3 mg/dL (8.6-10.3); Carbon Dioxide 31 mEq/L (23-29); Chloride 98 mEq/L (98-107); Glucose 81 mg/dL (70-105); Osmolality,Calculated 283 (280-300); Potassium 4.3 mEq/L (3.5-5.1); Sodium 134 mEq/L (136-145); eGFR For African Americans > 60 (> 60); eGFR For Non-African Americans > 60 (> 60)
[2021-10-05] MEDS: Insulin LISPRO 300 UNITS/3 ML VIAL SUBQ SCH ×4 (07:22→21:30)
[2021-10-05] MEDS: Budesonide/Formoterol 160/4.5 1 PUFF INH IH SCH ×2 (07:59→20:19)
[2021-10-05] MEDS: Spironolactone 25 MG TABLET PO SCH (08:20)
[2021-10-05] MEDS: *HR* Dabigatran 150 MG CAPSULE PO SCH ×2 (08:20→21:28)
[2021-10-05] MEDS: Metoprolol XL (24 HR) Succ 50 MG TAB.ER.24H PO SCH ×2 (08:25→21:28)
[2021-10-05] MEDS: *HR* Digoxin 0.125 MG TABLET PO SCH (08:28)
[2021-10-05] MEDS: Fluticasone Propionate Nasal 50 MCG/SPRAY BOTTLE NS SCH (08:28)
[2021-10-05] MEDS: Furosemide 40 MG/4 ML VIAL IVP SCH (08:36)
[2021-10-06] MEDS: Ipratropium 1 PUFF INHALER IH SCH ×4 (03:36→19:54)
[2021-10-06] MEDS: Insulin LISPRO 300 UNITS/3 ML VIAL SUBQ SCH ×4 (07:28→21:11)
[2021-10-06] MEDS: Budesonide/Formoterol 160/4.5 1 PUFF INH IH SCH ×2 (07:35→19:54)
[2021-10-06] MEDS: *HR* Dabigatran 150 MG CAPSULE PO SCH ×2 (08:16→21:12)
[2021-10-06] MEDS: Furosemide 40 MG/4 ML VIAL IVP SCH (08:16)
[2021-10-06] MEDS: Metoprolol XL (24 HR) Succ 50 MG TAB.ER.24H PO SCH ×2 (08:16→21:09)
[2021-10-06] MEDS: Spironolactone 25 MG TABLET PO SCH (08:17)
[2021-10-06] MEDS: Fluticasone Propionate Nasal 50 MCG/SPRAY BOTTLE NS SCH (08:17)
[2021-10-06] MEDS: *HR* Digoxin 0.125 MG TABLET PO SCH (08:17)
[2021-10-07] MEDS: Ipratropium 1 PUFF INHALER IH SCH ×4 (04:00→20:00)
[2021-10-07] MEDS: Spironolactone 25 MG TABLET PO SCH (07:32)
[2021-10-07] MEDS: *HR* Dabigatran 150 MG CAPSULE PO SCH ×2 (07:32→22:16)
[2021-10-07] MEDS: Furosemide 40 MG/4 ML VIAL IVP SCH (07:32)
[2021-10-07] MEDS: *HR* Digoxin 0.125 MG TABLET PO SCH (07:33)
[2021-10-07] MEDS: Metoprolol XL (24 HR) Succ 50 MG TAB.ER.24H PO SCH ×2 (07:33→22:17)
[2021-10-07] MEDS: Fluticasone Propionate Nasal 50 MCG/SPRAY BOTTLE NS SCH (07:34)
[2021-10-07] MEDS: Insulin LISPRO 300 UNITS/3 ML VIAL SUBQ SCH ×4 (07:34→22:40)
[2021-10-07] MEDS: Budesonide/Formoterol 160/4.5 1 PUFF INH IH SCH ×2 (11:19→20:00)
[2021-10-07] MEDS ORDERED: *HR* LORazepam 2 MG/ML VIAL IVP ONE (23:10)
[2021-10-08] MEDS: Ipratropium 1 PUFF INHALER IH SCH ×4 (03:42→20:13)
[2021-10-08 05:50] LABS: Hematocrit 41.9 % (37.5-50.1); Hemoglobin 13.9 g/dL (12.9-16.9); Lymphocytes % 19.9 %; Mean Corpuscular HGB Conc 33.2 g/dL (31.6-35.5); Mean Corpuscular Hemoglobin 30.3 pg (28.0-33.3); Mean Corpuscular Volume 91.3 fL (83.0-100.0); Mean Platelet Volume 9.6 fL (9.4-12.4); Platelet Count 315 K/mcL (140-400); Red Blood Count 4.59 M/mcL (4.19-5.50); Red Cell Distribution Width 14.1 % (11.5-14.5); Segmented Neutrophils % 66.1 %; White Blood Count 8.4 K/mcL (4.3-11.1)
[2021-10-08 05:51] LABS: Basophils % 0.4 %; Eosinophils # 0.3 K/mcL (0.0-0.6); Lymphocytes # 1.7 K/mcL (0.6-4.6); Monocytes # 0.8 K/mcL (0.0-1.3); Monocytes % 9.6 %; Neutrophils # 5.5 K/mcL (1.6-8.9)
[2021-10-08 06:10] LABS: BUN/Creatinine Ratio 69 (6-26); Blood Urea Nitrogen 24 mg/dL (8-23); Calcium 8.5 mg/dL (8.6-10.3); Carbon Dioxide 34 mEq/L (23-29); Chloride 94 mEq/L (98-107); Glucose 91 mg/dL (70-105); Osmolality,Calculated 278 (280-300); Potassium 4.5 mEq/L (3.5-5.1); Sodium 132 mEq/L (136-145); eGFR For African Americans > 60 (> 60); eGFR For Non-African Americans > 60 (> 60)
[2021-10-08] MEDS: Budesonide/Formoterol 160/4.5 1 PUFF INH IH SCH ×2 (07:36→20:14)
[2021-10-08] MEDS: Insulin LISPRO 300 UNITS/3 ML VIAL SUBQ SCH ×4 (08:45→20:06)
[2021-10-08] MEDS: Spironolactone 25 MG TABLET PO SCH (08:47)
[2021-10-08] MEDS: Metoprolol XL (24 HR) Succ 50 MG TAB.ER.24H PO SCH ×2 (08:47→20:16)
[2021-10-08] MEDS: *HR* Digoxin 0.125 MG TABLET PO SCH (08:47)
[2021-10-08] MEDS: *HR* Dabigatran 150 MG CAPSULE PO SCH ×2 (08:47→20:16)
[2021-10-08] MEDS: Fluticasone Propionate Nasal 50 MCG/SPRAY BOTTLE NS SCH (08:48)
[2021-10-08] MEDS ORDERED: Furosemide 40 MG TABLET PO SCH (09:00)
[2021-10-08] MEDS: predniSONE 20 MG TABLET PO SCH (14:59)
[2021-10-08] MEDS: Furosemide 40 MG/4 ML VIAL IVP SCH (14:59)
[2021-10-08] MEDS: *HR* LORazepam 2 MG/ML VIAL IVP PRN (16:49)
[2021-10-09] MEDS: Ipratropium 1 PUFF INHALER IH SCH ×3 (03:36→15:56)
[2021-10-09] MEDS: Budesonide/Formoterol 160/4.5 1 PUFF INH IH SCH ×2 (07:50→20:16)
[2021-10-09] MEDS: predniSONE 20 MG TABLET PO SCH (08:58)
[2021-10-09] MEDS: Spironolactone 25 MG TABLET PO SCH (08:58)
[2021-10-09] MEDS: *HR* Digoxin 0.125 MG TABLET PO SCH (08:58)
[2021-10-09] MEDS: Metoprolol XL (24 HR) Succ 50 MG TAB.ER.24H PO SCH ×2 (08:58→22:06)
[2021-10-09] MEDS: Furosemide 40 MG/4 ML VIAL IVP SCH (08:59)
[2021-10-09] MEDS: *HR* Dabigatran 150 MG CAPSULE PO SCH ×2 (08:59→22:06)
[2021-10-09] MEDS: Insulin LISPRO 300 UNITS/3 ML VIAL SUBQ SCH ×4 (09:14→22:07)
[2021-10-09] MEDS ORDERED: Levalbuterol Neb 1.25 MG/3 ML IH SCH (10:00)
[2021-10-09] MEDS: Ipratropium/Albuterol Neb 3 ML IH SCH ×3 (10:55→20:15)
[2021-10-09] MEDS: Fluticasone Propionate Nasal 50 MCG/SPRAY BOTTLE NS SCH (12:07)
[2021-10-10] MEDS: Ipratropium/Albuterol Neb 3 ML IH SCH ×4 (04:15→20:33)
[2021-10-10] MEDS: *HR* LORazepam 2 MG/ML VIAL IVP PRN ×2 (04:27→21:03)
[2021-10-10] MEDS: Budesonide/Formoterol 160/4.5 1 PUFF INH IH SCH ×2 (07:37→20:34)
[2021-10-10] MEDS: *HR* Dabigatran 150 MG CAPSULE PO SCH ×2 (08:38→20:59)
[2021-10-10] MEDS: predniSONE 20 MG TABLET PO SCH (08:39)
[2021-10-10] MEDS: *HR* Digoxin 0.125 MG TABLET PO SCH (08:39)
[2021-10-10] MEDS: Metoprolol XL (24 HR) Succ 50 MG TAB.ER.24H PO SCH ×2 (08:39→20:59)
[2021-10-10] MEDS: Spironolactone 12.5 MG TABLET PO SCH (08:39)
[2021-10-10] MEDS: lisinopriL 5 MG TABLET PO SCH (08:40)
[2021-10-10] MEDS: Fluticasone Propionate Nasal 50 MCG/SPRAY BOTTLE NS SCH (08:40)
[2021-10-10] MEDS: Furosemide 40 MG/4 ML VIAL IVP SCH (08:41)
[2021-10-10] MEDS: Insulin LISPRO 300 UNITS/3 ML VIAL SUBQ SCH ×4 (08:52→21:04)
[2021-10-10] MEDS ORDERED: Saline Nasal Spray 44 ML BOTTLE NS PRN (08:54)
[2021-10-11] MEDS: Ipratropium/Albuterol Neb 3 ML IH SCH ×4 (03:42→20:58)
[2021-10-11 04:53] LABS: Basophils % 0.2 %; Eosinophils # 0.1 K/mcL (0.0-0.6); Eosinophils % 0.9 %; Hematocrit 41.5 % (37.5-50.1); Hemoglobin 13.7 g/dL (12.9-16.9); Immature Granulocytes % 0.6 % (0-4); Lymphocytes # 2.5 K/mcL (0.6-4.6); Mean Corpuscular Hemoglobin 30.5 pg (28.0-33.3); Mean Corpuscular Volume 92.4 fL (83.0-100.0); Mean Platelet Volume 9.6 fL (9.4-12.4); Monocytes # 1.2 K/mcL (0.0-1.3); Monocytes % 9.8 %; Neutrophils # 8.5 K/mcL (1.6-8.9); Platelet Count 357 K/mcL (140-400); Red Blood Count 4.49 M/mcL (4.19-5.50); Red Cell Distribution Width 14.4 % (11.5-14.5); Segmented Neutrophils % 68.5 %; White Blood Count 12.4 K/mcL (4.3-11.1)
[2021-10-11 05:10] LABS: BUN/Creatinine Ratio 67 (6-26); Blood Urea Nitrogen 31 mg/dL (8-23); Calcium 8.5 mg/dL (8.6-10.3); Carbon Dioxide 38 mEq/L (23-29); Chloride 92 mEq/L (98-107); Glucose 130 mg/dL (70-105); Osmolality,Calculated 286 (280-300); Potassium 4.3 mEq/L (3.5-5.1); Sodium 134 mEq/L (136-145); eGFR For African Americans > 60 (> 60); eGFR For Non-African Americans > 60 (> 60)
[2021-10-11] MEDS: Budesonide/Formoterol 160/4.5 1 PUFF INH IH SCH ×2 (07:40→20:59)
[2021-10-11] MEDS: Insulin LISPRO 300 UNITS/3 ML VIAL SUBQ SCH ×4 (08:10→21:19)
[2021-10-11] MEDS: lisinopriL 5 MG TABLET PO SCH (08:11)
[2021-10-11] MEDS: Metoprolol XL (24 HR) Succ 50 MG TAB.ER.24H PO SCH ×2 (08:27→21:18)
[2021-10-11] MEDS: *HR* Dabigatran 150 MG CAPSULE PO SCH ×2 (08:27→21:18)
[2021-10-11] MEDS: *HR* Digoxin 0.125 MG TABLET PO SCH (08:28)
[2021-10-11] MEDS: Fluticasone Propionate Nasal 50 MCG/SPRAY BOTTLE NS SCH (08:28)
[2021-10-11] MEDS: Spironolactone 12.5 MG TABLET PO SCH (08:28)
[2021-10-11] MEDS: predniSONE 20 MG TABLET PO SCH (08:28)
[2021-10-11] MEDS: Furosemide 40 MG/4 ML VIAL IVP SCH (08:28)
[2021-10-11] MEDS: *HR* LORazepam 2 MG/ML VIAL IVP PRN ×2 (12:30→21:19)
[2021-10-11] MEDS: Nystatin POWDER 30 GM BOTTLE TP SCH (21:18)
[2021-10-12] MEDS: Ipratropium/Albuterol Neb 3 ML IH SCH ×4 (04:06→19:44)
[2021-10-12 05:00] LABS: Basophils % 0.3 %; Eosinophils # 0.1 K/mcL (0.0-0.6); Eosinophils % 1.1 %; Hematocrit 42.3 % (37.5-50.1); Hemoglobin 13.8 g/dL (12.9-16.9); Lymphocytes # 3.1 K/mcL (0.6-4.6); Lymphocytes % 26.4 %; Mean Corpuscular HGB Conc 32.6 g/dL (31.6-35.5); Mean Corpuscular Hemoglobin 30.2 pg (28.0-33.3); Mean Corpuscular Volume 92.6 fL (83.0-100.0); Mean Platelet Volume 9.4 fL (9.4-12.4); Monocytes # 1.2 K/mcL (0.0-1.3); Monocytes % 10.2 %; Neutrophils # 7.2 K/mcL (1.6-8.9); Platelet Count 342 K/mcL (140-400); Red Blood Count 4.57 M/mcL (4.19-5.50); Red Cell Distribution Width 14.4 % (11.5-14.5); White Blood Count 11.8 K/mcL (4.3-11.1)
[2021-10-12 05:19] LABS: BUN/Creatinine Ratio 73 (6-26); Blood Urea Nitrogen 32 mg/dL (8-23); Calcium 8.8 mg/dL (8.6-10.3); Carbon Dioxide 39 mEq/L (23-29); Chloride 90 mEq/L (98-107); Glucose 126 mg/dL (70-105); Osmolality,Calculated 284 (280-300); Potassium 4.4 mEq/L (3.5-5.1); Sodium 133 mEq/L (136-145); eGFR For African Americans > 60 (> 60); eGFR For Non-African Americans > 60 (> 60)
[2021-10-12] MEDS: Insulin LISPRO 300 UNITS/3 ML VIAL SUBQ SCH ×4 (08:06→21:25)
[2021-10-12] MEDS: Fluticasone Propionate Nasal 50 MCG/SPRAY BOTTLE NS SCH (08:07)
[2021-10-12] MEDS: Metoprolol XL (24 HR) Succ 50 MG TAB.ER.24H PO SCH ×2 (08:07→21:24)
[2021-10-12] MEDS: predniSONE 20 MG TABLET PO SCH (08:07)
[2021-10-12] MEDS: *HR* Digoxin 0.125 MG TABLET PO SCH (08:07)
[2021-10-12] MEDS: *HR* Dabigatran 150 MG CAPSULE PO SCH ×2 (08:07→21:24)
[2021-10-12] MEDS: Nystatin POWDER 30 GM BOTTLE TP SCH ×2 (08:08→21:25)
[2021-10-12] MEDS: lisinopriL 5 MG TABLET PO SCH (08:15)
[2021-10-12] MEDS: Spironolactone 12.5 MG TABLET PO SCH (08:55)
[2021-10-12] MEDS: Furosemide 40 MG/4 ML VIAL IVP SCH (08:58)
[2021-10-12] MEDS: Budesonide/Formoterol 160/4.5 1 PUFF INH IH SCH ×2 (09:24→19:44)
[2021-10-12] MEDS: *HR* LORazepam 2 MG/ML VIAL IVP PRN (10:40)
[2021-10-13] MEDS: Ipratropium/Albuterol Neb 3 ML IH SCH ×4 (03:36→19:44)
[2021-10-13 07:21] LABS: Basophils % 0.3 %; Eosinophils # 0.1 K/mcL (0.0-0.6); Eosinophils % 0.5 %; Hematocrit 41.5 % (37.5-50.1); Hemoglobin 13.7 g/dL (12.9-16.9); Immature Granulocytes % 0.7 % (0-4); Lymphocytes # 2.4 K/mcL (0.6-4.6); Lymphocytes % 22.4 %; Mean Corpuscular Hemoglobin 30.6 pg (28.0-33.3); Mean Corpuscular Volume 92.8 fL (83.0-100.0); Mean Platelet Volume 9.5 fL (9.4-12.4); Monocytes # 0.9 K/mcL (0.0-1.3); Monocytes % 8.5 %; Neutrophils # 7.3 K/mcL (1.6-8.9); Platelet Count 310 K/mcL (140-400); Red Blood Count 4.47 M/mcL (4.19-5.50); Red Cell Distribution Width 14.4 % (11.5-14.5); Segmented Neutrophils % 67.6 %; White Blood Count 10.8 K/mcL (4.3-11.1)
[2021-10-13 07:34] LABS: BUN/Creatinine Ratio 79 (6-26); Blood Urea Nitrogen 31 mg/dL (8-23); Calcium 8.7 mg/dL (8.6-10.3); Carbon Dioxide 37 mEq/L (23-29); Chloride 92 mEq/L (98-107); Glucose 90 mg/dL (70-105); Osmolality,Calculated 280 (280-300); Potassium 4.7 mEq/L (3.5-5.1); Sodium 132 mEq/L (136-145); eGFR For African Americans > 60 (> 60); eGFR For Non-African Americans > 60 (> 60)
[2021-10-13] MEDS: Budesonide/Formoterol 160/4.5 1 PUFF INH IH SCH ×2 (08:06→19:44)
[2021-10-13] MEDS: Furosemide 40 MG/4 ML VIAL IVP SCH ×2 (09:45→10:12)
[2021-10-13] MEDS: Insulin LISPRO 300 UNITS/3 ML VIAL SUBQ SCH ×4 (10:11→21:31)
[2021-10-13] MEDS: *HR* Dabigatran 150 MG CAPSULE PO SCH ×2 (10:12→21:31)
[2021-10-13] MEDS: Metoprolol XL (24 HR) Succ 50 MG TAB.ER.24H PO SCH ×2 (10:13→21:31)
[2021-10-13] MEDS: Spironolactone 12.5 MG TABLET PO SCH (10:14)
[2021-10-13] MEDS: lisinopriL 5 MG TABLET PO SCH ×2 (10:14→17:13)
[2021-10-13] MEDS: *HR* Digoxin 0.125 MG TABLET PO SCH (10:14)
[2021-10-13] MEDS: predniSONE 20 MG TABLET PO SCH (10:14)
[2021-10-13] MEDS: Nystatin POWDER 30 GM BOTTLE TP SCH ×2 (10:21→21:32)
[2021-10-13] MEDS: Fluticasone Propionate Nasal 50 MCG/SPRAY BOTTLE NS SCH (10:22)
[2021-10-13] MEDS: *HR* LORazepam 2 MG/ML VIAL IVP PRN (10:46)
[2021-10-14] MEDS: Ipratropium/Albuterol Neb 3 ML IH SCH ×4 (03:40→19:37)
[2021-10-14 07:25] LABS: Basophils % 0.4 %; Eosinophils # 0.1 K/mcL (0.0-0.6); Eosinophils % 0.5 %; Hematocrit 43.7 % (37.5-50.1); Hemoglobin 14.5 g/dL (12.9-16.9); Immature Granulocytes % 0.8 % (0-4); Lymphocytes # 2.1 K/mcL (0.6-4.6); Lymphocytes % 21.6 %; Mean Corpuscular HGB Conc 33.2 g/dL (31.6-35.5); Mean Corpuscular Hemoglobin 30.9 pg (28.0-33.3); Mean Corpuscular Volume 93.2 fL (83.0-100.0); Mean Platelet Volume 9.3 fL (9.4-12.4); Monocytes # 0.8 K/mcL (0.0-1.3); Monocytes % 7.7 %; Neutrophils # 6.8 K/mcL (1.6-8.9); Platelet Count 283 K/mcL (140-400); Red Blood Count 4.69 M/mcL (4.19-5.50); Red Cell Distribution Width 14.4 % (11.5-14.5); White Blood Count 9.9 K/mcL (4.3-11.1)
[2021-10-14 07:54] LABS: BUN/Creatinine Ratio 65 (6-26); Blood Urea Nitrogen 26 mg/dL (8-23); Calcium 8.9 mg/dL (8.6-10.3); Carbon Dioxide 40 mEq/L (23-29); Chloride 91 mEq/L (98-107); Glucose 99 mg/dL (70-105); Osmolality,Calculated 281 (280-300); Potassium 4.4 mEq/L (3.5-5.1); Sodium 133 mEq/L (136-145); eGFR For African Americans > 60 (> 60); eGFR For Non-African Americans > 60 (> 60)
[2021-10-14] MEDS: Budesonide/Formoterol 160/4.5 1 PUFF INH IH SCH ×2 (08:35→19:37)
[2021-10-14] MEDS: *HR* Dabigatran 150 MG CAPSULE PO SCH ×2 (09:14→21:44)
[2021-10-14] MEDS: predniSONE 20 MG TABLET PO SCH (09:15)
[2021-10-14] MEDS: Metoprolol XL (24 HR) Succ 50 MG TAB.ER.24H PO SCH ×3 (09:15→21:44)
[2021-10-14] MEDS: lisinopriL 5 MG TABLET PO SCH ×2 (09:16→09:34)
[2021-10-14] MEDS: *HR* Digoxin 0.125 MG TABLET PO SCH (09:17)
[2021-10-14] MEDS: Nystatin POWDER 30 GM BOTTLE TP SCH ×2 (09:21→21:45)
[2021-10-14] MEDS: Insulin LISPRO 300 UNITS/3 ML VIAL SUBQ SCH ×4 (09:23→21:16)
[2021-10-14] MEDS: Fluticasone Propionate Nasal 50 MCG/SPRAY BOTTLE NS SCH ×2 (09:24→09:25)
[2021-10-14] MEDS: *HR* LORazepam 2 MG/ML VIAL IVP PRN (11:25)
[2021-10-15] MEDS: Ipratropium/Albuterol Neb 3 ML IH SCH ×4 (03:34→20:27)
[2021-10-15 04:51] LABS: Basophils % 0.5 %; Eosinophils # 0.1 K/mcL (0.0-0.6); Eosinophils % 1.1 %; Hematocrit 39.5 % (37.5-50.1); Hemoglobin 13.6 g/dL (12.9-16.9); Immature Granulocytes % 1.4 % (0-4); Lymphocytes # 2.1 K/mcL (0.6-4.6); Lymphocytes % 24.6 %; Mean Corpuscular HGB Conc 34.4 g/dL (31.6-35.5); Mean Corpuscular Hemoglobin 31.4 pg (28.0-33.3); Mean Corpuscular Volume 91.2 fL (83.0-100.0); Mean Platelet Volume 9.4 fL (9.4-12.4); Monocytes # 0.6 K/mcL (0.0-1.3); Monocytes % 7.6 %; Neutrophils # 5.5 K/mcL (1.6-8.9); Platelet Count 256 K/mcL (140-400); Red Blood Count 4.33 M/mcL (4.19-5.50); Red Cell Distribution Width 14.4 % (11.5-14.5); Segmented Neutrophils % 64.8 %; White Blood Count 8.5 K/mcL (4.3-11.1)
[2021-10-15 05:16] LABS: BUN/Creatinine Ratio 60 (6-26); Blood Urea Nitrogen 21 mg/dL (8-23); Calcium 8.6 mg/dL (8.6-10.3); Carbon Dioxide 36 mEq/L (23-29); Chloride 90 mEq/L (98-107); Glucose 90 mg/dL (70-105); Osmolality,Calculated 275 (280-300); Potassium 4.5 mEq/L (3.5-5.1); Sodium 131 mEq/L (136-145); eGFR For African Americans > 60 (> 60); eGFR For Non-African Americans > 60 (> 60)
[2021-10-15] MEDS: Budesonide/Formoterol 160/4.5 1 PUFF INH IH SCH ×2 (07:17→20:27)
[2021-10-15] MEDS: Morphine Sulfate Oral CONC 10 MG/0.5 ML ORAL.SYG SL PRN ×2 (08:09→17:52)
[2021-10-15] MEDS: *HR* Digoxin 0.125 MG TABLET PO SCH (08:10)
[2021-10-15] MEDS: Metoprolol XL (24 HR) Succ 50 MG TAB.ER.24H PO SCH ×2 (08:10→21:13)
[2021-10-15] MEDS: *HR* Dabigatran 150 MG CAPSULE PO SCH ×2 (08:10→21:13)
[2021-10-15] MEDS: predniSONE 20 MG TABLET PO SCH (08:10)
[2021-10-15] MEDS: lisinopriL 5 MG TABLET PO SCH (08:11)
[2021-10-15] MEDS: Insulin LISPRO 300 UNITS/3 ML VIAL SUBQ SCH ×4 (08:12→21:14)
[2021-10-15] MEDS: Fluticasone Propionate Nasal 50 MCG/SPRAY BOTTLE NS SCH (08:18)
[2021-10-15] MEDS: Saliva Stimulant 44.3ml BOTTLE PO PRN (08:18)
[2021-10-15] MEDS: Nystatin POWDER 30 GM BOTTLE TP SCH ×2 (08:18→21:14)
[2021-10-15] MEDS ORDERED: Furosemide 40 MG/4 ML VIAL IVP ONE (12:19)
[2021-10-15] MEDS: Beer can PO SCH ×2 (13:32→17:24)
[2021-10-15] MEDS: *HR* LORazepam 2 MG/ML VIAL IVP PRN (21:14)
[2021-10-16] MEDS: Ipratropium/Albuterol Neb 3 ML IH SCH ×4 (04:33→20:29)
[2021-10-16] MEDS: Budesonide/Formoterol 160/4.5 1 PUFF INH IH SCH ×2 (07:27→20:29)
[2021-10-16] MEDS: Insulin LISPRO 300 UNITS/3 ML VIAL SUBQ SCH ×4 (08:02→20:14)
[2021-10-16] MEDS: Morphine Sulfate Oral CONC 10 MG/0.5 ML ORAL.SYG SL PRN ×3 (08:12→20:22)
[2021-10-16] MEDS: *HR* Digoxin 0.125 MG TABLET PO SCH (08:13)
[2021-10-16] MEDS: *HR* Dabigatran 150 MG CAPSULE PO SCH ×2 (08:13→20:14)
[2021-10-16] MEDS: predniSONE 20 MG TABLET PO SCH (08:13)
[2021-10-16] MEDS: Beer can PO SCH (08:13)
[2021-10-16] MEDS: lisinopriL 5 MG TABLET PO SCH (08:14)
[2021-10-16] MEDS: Nystatin POWDER 30 GM BOTTLE TP SCH ×2 (08:14→20:14)
[2021-10-16] MEDS: Metoprolol XL (24 HR) Succ 50 MG TAB.ER.24H PO SCH ×2 (08:14→19:15)
[2021-10-16] MEDS: Fluticasone Propionate Nasal 50 MCG/SPRAY BOTTLE NS SCH (08:17)
[2021-10-16 17:15] LABS: BUN/Creatinine Ratio 54 (6-26); Blood Urea Nitrogen 20 mg/dL (8-23); Calcium 8.1 mg/dL (8.6-10.3); Carbon Dioxide 26 mEq/L (23-29); Chloride 91 mEq/L (98-107); Glucose 158 mg/dL (70-105); Osmolality,Calculated 266 (280-300); Potassium 5.2 mEq/L (3.5-5.1); Sodium 125 mEq/L (136-145); eGFR For African Americans > 60 (> 60); eGFR For Non-African Americans > 60 (> 60)
[2021-10-17] MEDS: Ipratropium/Albuterol Neb 3 ML IH SCH ×4 (03:55→20:18)
[2021-10-17 06:25] LABS: Basophils % 0.4 %; Eosinophils # 0.1 K/mcL (0.0-0.6); Eosinophils % 0.7 %; Hematocrit 39.7 % (37.5-50.1); Hemoglobin 13.5 g/dL (12.9-16.9); Immature Granulocytes % 1.3 % (0-4); Lymphocytes # 2.1 K/mcL (0.6-4.6); Lymphocytes % 21.9 %; Mean Corpuscular Volume 91.3 fL (83.0-100.0); Mean Platelet Volume 9.2 fL (9.4-12.4); Monocytes # 0.6 K/mcL (0.0-1.3); Monocytes % 6.5 %; Neutrophils # 6.7 K/mcL (1.6-8.9); Platelet Count 222 K/mcL (140-400); Red Blood Count 4.35 M/mcL (4.19-5.50); Red Cell Distribution Width 14.6 % (11.5-14.5); Segmented Neutrophils % 69.2 %; White Blood Count 9.7 K/mcL (4.3-11.1)
[2021-10-17 06:45] LABS: BUN/Creatinine Ratio 54 (6-26); Blood Urea Nitrogen 20 mg/dL (8-23); Calcium 8.4 mg/dL (8.6-10.3); Carbon Dioxide 34 mEq/L (23-29); Chloride 90 mEq/L (98-107); Glucose 64 mg/dL (70-105); Osmolality,Calculated 269 (280-300); Potassium 4.3 mEq/L (3.5-5.1); Sodium 129 mEq/L (136-145); eGFR For African Americans > 60 (> 60); eGFR For Non-African Americans > 60 (> 60)
[2021-10-17] MEDS: Budesonide/Formoterol 160/4.5 1 PUFF INH IH SCH ×2 (07:26→20:18)
[2021-10-17] MEDS: Insulin LISPRO 300 UNITS/3 ML VIAL SUBQ SCH ×4 (08:53→19:07)
[2021-10-17] MEDS: *HR* Digoxin 0.125 MG TABLET PO SCH (08:54)
[2021-10-17] MEDS: *HR* Dabigatran 150 MG CAPSULE PO SCH ×2 (08:55→19:17)
[2021-10-17] MEDS: predniSONE 20 MG TABLET PO SCH (08:55)
[2021-10-17] MEDS: Metoprolol XL (24 HR) Succ 50 MG TAB.ER.24H PO SCH ×2 (08:56→19:17)
[2021-10-17] MEDS: lisinopriL 5 MG TABLET PO SCH (08:57)
[2021-10-17] MEDS: Nystatin POWDER 30 GM BOTTLE TP SCH ×2 (08:57→19:17)
[2021-10-17] MEDS ORDERED: Beer can PO SCH (12:00)
[2021-10-17] MEDS ORDERED: Furosemide 20 MG/2 ML VIAL IVP ONE (13:55)
[2021-10-17] MEDS ORDERED: Spironolactone 12.5 MG TABLET PO SCH (17:42)
[2021-10-18] MEDS: Ipratropium/Albuterol Neb 3 ML IH SCH ×2 (04:14→07:32)
[2021-10-18] MEDS: Budesonide/Formoterol 160/4.5 1 PUFF INH IH SCH ×2 (07:32→20:05)
[2021-10-18] MEDS: Insulin LISPRO 300 UNITS/3 ML VIAL SUBQ SCH ×4 (09:18→20:24)
[2021-10-18] MEDS: *HR* Digoxin 0.125 MG TABLET PO SCH (09:19)
[2021-10-18] MEDS: Furosemide 40 MG/4 ML VIAL IVP SCH (09:19)
[2021-10-18] MEDS: Metoprolol XL (24 HR) Succ 50 MG TAB.ER.24H PO SCH ×2 (09:19→20:23)
[2021-10-18] MEDS: *HR* Dabigatran 150 MG CAPSULE PO SCH ×2 (09:20→20:23)
[2021-10-18] MEDS: predniSONE 20 MG TABLET PO SCH (09:21)
[2021-10-18] MEDS: Fluticasone Propionate Nasal 50 MCG/SPRAY BOTTLE NS SCH (09:21)
[2021-10-18] MEDS: lisinopriL 5 MG TABLET PO SCH (09:22)
[2021-10-18] MEDS: Nystatin POWDER 30 GM BOTTLE TP SCH ×2 (09:22→20:24)
[2021-10-18] MEDS ORDERED: Ipratropium/Albuterol Neb 3 ML IH PRN (13:43)
[2021-10-18] MEDS: Morphine Sulfate Oral CONC 10 MG/0.5 ML ORAL.SYG SL PRN (17:15)
[2021-10-18] MEDS: *HR* LORazepam 1 MG TABLET PO PRN (20:23)
[2021-10-19] MEDS: Insulin LISPRO 300 UNITS/3 ML VIAL SUBQ SCH ×4 (07:29→20:59)
[2021-10-19] MEDS: Metoprolol XL (24 HR) Succ 50 MG TAB.ER.24H PO SCH ×2 (07:30→20:59)
[2021-10-19] MEDS: *HR* Dabigatran 150 MG CAPSULE PO SCH ×2 (07:30→20:59)
[2021-10-19] MEDS: *HR* Digoxin 0.125 MG TABLET PO SCH (07:32)
[2021-10-19] MEDS: lisinopriL 5 MG TABLET PO SCH (07:32)
[2021-10-19] MEDS: *HR* LORazepam 1 MG TABLET PO PRN (07:33)
[2021-10-19] MEDS: Budesonide/Formoterol 160/4.5 1 PUFF INH IH SCH ×2 (07:42→19:39)
[2021-10-19] MEDS: Furosemide 40 MG/4 ML VIAL IVP SCH (07:42)
[2021-10-19] MEDS: Nystatin POWDER 30 GM BOTTLE TP SCH ×2 (07:43→20:59)
[2021-10-19] MEDS: Furosemide 20 MG TABLET PO SCH (10:58)
[2021-10-19] MEDS: Morphine Sulfate Oral CONC 10 MG/0.5 ML ORAL.SYG SL PRN ×3 (10:59→16:21)
[2021-10-19] MEDS ORDERED: *HR* LORazepam Oral Conc 2 MG/ML PO PRN (11:44)
[2021-10-19] MEDS: Fluticasone Propionate Nasal 50 MCG/SPRAY BOTTLE NS SCH (12:06)
[2021-10-19] MEDS: *HR* LORazepam 1 MG TABLET PO SCH (21:14)
[2021-10-19] MEDS ORDERED: *HR* LORazepam 2 MG/ML VIAL IVP PRN (21:42)
[2021-10-20] MEDS: Morphine Sulfate 2 MG/ML SYRINGE IVP PRN ×5 (00:27→16:28)
[2021-10-20] MEDS ORDERED: Scopolamine Patch 1.5 MG PATCH.TD72 TD ONE (02:01)
[2021-10-20] MEDS: Budesonide/Formoterol 160/4.5 1 PUFF INH IH SCH ×2 (08:01→19:34)
[2021-10-20] MEDS: Insulin LISPRO 300 UNITS/3 ML VIAL SUBQ SCH ×4 (08:48→21:00)
[2021-10-20] MEDS: *HR* LORazepam 1 MG TABLET PO SCH (08:52)
[2021-10-20] MEDS: Fluticasone Propionate Nasal 50 MCG/SPRAY BOTTLE NS SCH (08:52)
[2021-10-20] MEDS: Metoprolol XL (24 HR) Succ 50 MG TAB.ER.24H PO SCH (08:53)
[2021-10-20] MEDS: *HR* Dabigatran 150 MG CAPSULE PO SCH ×2 (08:53→21:00)
[2021-10-20] MEDS: *HR* Digoxin 0.125 MG TABLET PO SCH (08:53)
[2021-10-20] MEDS: Furosemide 20 MG TABLET PO SCH (08:53)
[2021-10-20] MEDS: lisinopriL 5 MG TABLET PO SCH (08:53)
[2021-10-20] MEDS: Nystatin POWDER 30 GM BOTTLE TP SCH ×2 (09:27→21:00)
[2021-10-20] MEDS: Atropine Sulfate 1% 40 DROP/2 ML BOTTLE SL PRN ×2 (10:37→14:46)
[2021-10-20] MEDS: Beer can PO SCH (13:33)
[2021-10-20] MEDS ORDERED: Atropine Sulfate 1% 40 DROP/2 ML BOTTLE SL PRN (16:56)
[2021-10-20] MEDS ORDERED: *HR* LORazepam 2 MG/ML VIAL IVP PRN (16:58)
[2021-10-20] MEDS: Glycopyrrolate 0.2 MG/ML VIAL IVP PRN (20:45)
[2021-10-21] MEDS: Morphine Sulfate 2 MG/ML SYRINGE IVP PRN ×4 (00:01→10:35)
[2021-10-21] MEDS: Glycopyrrolate 0.2 MG/ML VIAL IVP PRN (04:09)
[2021-10-21 06:28] VITALS: BP 113/71; PULSE 108; TEMP 97.8
[2021-10-21] MEDS: Metoprolol XL (24 HR) Succ 50 MG TAB.ER.24H PO SCH (06:29)
[2021-10-21] MEDS: Beer can PO SCH ×3 (06:29→09:39)
[2021-10-21] MEDS: *HR* Digoxin 0.125 MG TABLET PO SCH (06:48)
[2021-10-21] MEDS: Fluticasone Propionate Nasal 50 MCG/SPRAY BOTTLE NS SCH (06:48)
[2021-10-21] MEDS: Insulin LISPRO 300 UNITS/3 ML VIAL SUBQ SCH (06:48)
[2021-10-21] MEDS: *HR* Dabigatran 150 MG CAPSULE PO SCH (06:49)
[2021-10-21] MEDS: Nystatin POWDER 30 GM BOTTLE TP SCH (09:18)
[2021-10-21] MEDS: Budesonide/Formoterol 160/4.5 1 PUFF INH IH SCH (10:20)
[2021-10-21 10:28] VITALS: O2SAT 82
== END 2021-10-21 13:15 | disposition expired | DRG 291 ==
LOC: 3ANU → SUATTDRO 18:39 → 2NENU 09-29 18:32
PROVIDERS: ADMIT Student in an Organized Health Care Education/Training Program; ATTEND Internal Medicine